=== PATIENT | female | born 1960 | race Caucasian/White ===

== ENCOUNTER 2016-09-12 01:29 | Observation (INO) | payer MEDICARE, OTHER ==
[2016-09-12] MEDS ORDERED: SODIUM CHLORIDE 0.9% 500 ML IV STA (02:09)
[2016-09-12] MEDS ORDERED: KETOROLAC 60 MG/2 ML VIAL IVP STA (02:17)
--- NOTE | 2016-09-12 02:17 | ED ---
General Adult HPI - General Chief complaint: Abdominal Pain Stated complaint: right side pain Time Seen by Provider: 09/12/16 01:45 Source: patient, RN notes reviewed Mode of arrival: ambulatory Limitations: no limitations - History of Present Illness Initial comments: This is a 55-year-old female who presents to the emergency department with past medical history of depression and fibromyalgia and chronic fatigue syndrome and arthritis since she's been a child. Patient states she is on disability because of these things. Patient states she has right upper quadrant abdominal pain that radiates to her back which she states is been ongoing for many months and it is intermittent in nature. 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 Patient states she had some trapezius muscle pain on with some right arm pain occurred when she was having some of her typical chest pain so she decided comes emergency Department and be worked up. Patient states currently she has no chest pain she denies any difficulty breathing or shortness of breath. Patient denies any nausea vomiting or diarrhea. Patient states she's been able to eat normally. Patient denies any recent fever chills or cough. Patient denies any recent injury or trauma. Patient denies lifting anything heavy. Patient states her trapezius muscle is tender when you touch it. - Related Data Home Medications Medication Instructions Recorded Confirmed Aspirin EC [Ecotrin] 81 mg PO DAILY 12/02/15 09/12/16 Carvedilol [Coreg] 6.25 mg PO BID 12/02/15 09/12/16 Chlorthalidone 25 mg PO DAILY 12/02/15 09/12/16 Cholecalciferol [Vitamin D3] 2,000 unit PO DAILY 12/02/15 09/12/16 Cyanocobalamin [Vitamin B-12 1,000 mcg SQ QMONTH 12/02/15 09/12/16 Injection] Divalproex Sodium [Divalproex 500 mg PO DAILY 12/02/15 09/12/16 Sodium ER] HYDROcodone/APAP 10-325MG [[place] 1 tab PO Q4HR 12/02/15 09/12/16 10-325] Isosorbide Mononitrate ER [Imdur] 30 mg PO DAILY 12/02/15 09/12/16 Lisinopril [Zestril] 2.5 mg PO DAILY 12/02/15 09/12/16 Magnesium Oxide [Mag-Ox] 250 mg PO DAILY 12/02/15 09/12/16 Naproxen [Naprosyn] 500 mg PO Q12HR 12/02/15 09/12/16 Omeprazole [PriLOSEC] 40 mg PO DAILY 12/02/15 09/12/16 Pregabalin [Lyrica] 150 mg PO TID 12/02/15 09/12/16 Simvastatin [Zocor] 40 mg PO HS 12/02/15 09/12/16 Topiramate [Topamax] 25 mg PO QID 12/02/15 09/12/16 Venlafaxine HCl ER [Effexor Xr] 150 mg PO DAILY 12/02/15 09/12/16 buPROPion SR [Wellbutrin Sr] 150 mg PO BID 12/02/15 09/12/16 metFORMIN HCL [Glucophage] 500 mg PO BID 12/02/15 09/12/16 traMADol HCL [Ultram] 100 mg PO Q6HR 12/02/15 09/12/16 traZODone HCL 150 mg PO HS 12/02/15 09/12/16 Allergies Allergy/AdvReac Type Severity Reaction Status Date / Time No Known Allergies Allergy Verified 09/12/16 01:46 Review of Systems ROS Statement: Those systems with pertinent positive or pertinent negative responses have been documented in the HPI. ROS Other: All systems not noted in ROS Statement are negative. Past Medical History Past Medical History: Diabetes Mellitus, Fibromyalgia, Hyperlipidemia, Hypertension, Seizure Disorder History of Any Multi-Drug Resistant Organisms: None Reported Past Surgical History: Bladder Surgery, Tubal Ligation Past Psychological History: Depression Smoking Status: Current every day smoker Past Alcohol Use History: None Reported Past Drug Use History: None Reported General Exam - General Exam Comments Initial Comments: GENERAL: Patient is well-developed and well-nourished. Patient is nontoxic and well- hydrated and is in no acute distress. ENT: Neck is soft and supple. No significant lymphadenopathy is noted. Oropharynx is clear. Moist mucous membranes. Neck has full range of motion without eliciting any pain. EYES: The sclera were anicteric and conjunctiva were pink and moist. Extraocular movements were intact and pupils were equal round and reactive to light. Eyelids were unremarkable. PULMONARY: Unlabored respirations. Good breath sounds bilaterally. No audible rales rhonchi or wheezing was noted. CARDIOVASCULAR: There is a regular rate and rhythm without any murmurs gallops or rubs. ABDOMEN: Soft and nontender with normal bowel sounds. No palpable organomegaly was noted. There is no palpable pulsatile mass. SKIN: Skin is clear with no lesions or rashes and otherwise unremarkable. NEUROLOGIC: Patient is alert and oriented x3. Cranial nerves II through XII are grossly intact. Motor and sensory are also intact. Normal speech, volume and content. Symmetrical smile. MUSCULOSKELETAL: Normal extremities with adequate strength and full range of motion. No lower extremity swelling or edema. No calf tenderness. Left patient's muscle is tender to palpation. LYMPHATICS: No significant lymphadenopathy is noted PSYCHIATRIC: Normal psychiatric evaluation. Normal interpersonal interactions appears functionally intact in deals appropriately with others. No signs of depression. No signs of anxiety. Limitations: no limitations Course Vital Signs 09/12/16 01:44 Temperature 98.3 F Pulse Rate 89 Respiratory 20 Rate Blood Pressure 141/86 O2 Sat by Pulse 98 Oximetry Medical Decision Making - Medical Decision Making EKG is repeated because the patient started having chest pain radiating to her neck. Patient's EKG shows normal sinus rhythm at 86 bpm HI interval is 160 QRS is 84 Q-T intervals 46 QTC is 45 per patient's EKG is compared to the earlier EKG no acute changes are noted. I spoke with Dr. Iniguez and he agreed to admit the patient and wrote admitting orders consult to cardiology - Lab Data Result diagrams: 09/12/16 02:30 09/12/16 02:30 Lab Results 09/12/16 09/12/16 09/12/16 Range/Units 02:30 02:30 02:30 WBC 7.5 (3.8-10.6) k/uL RBC 4.86 (3.80-5.40) m/uL Hgb 14.0 (11.4-16.0) gm/dL Hct 42.3 (34.0-46.0) % MCV 87.0 (80.0-100.0) fL MCH 28.8 (25.0-35.0) pg MCHC 33.1 (31.0-37.0) g/dL RDW 14.3 (11.5-15.5) % Plt Count 153 (150-450) k/uL Neutrophils % 58 % Lymphocytes % 33 % Monocytes % 6 % Eosinophils % 1 % Basophils % 1 % Neutrophils # 4.4 (1.3-7.7) k/uL Lymphocytes # 2.5 (1.0-4.8) k/uL Monocytes # 0.4 (0-1.0) k/uL Eosinophils # 0.1 (0-0.7) k/uL Basophils # 0.0 (0-0.2) k/uL Sodium 140 (137-145) mmol/L Potassium 3.8 (3.5-5.1) mmol/L Chloride 104 (98-107) mmol/L Carbon Dioxide 28 (22-30) mmol/L Anion Gap 8 mmol/L BUN 16 (7-17) mg/dL Creatinine 0.80 (0.52-1.04) mg/dL Est GFR (MDRD) Af Amer >60 (>60 ml/min/1.73 sqM) Est GFR (MDRD) Non-Af >60 (>60 ml/min/1.73 sqM) Glucose 100 H (74-99) mg/dL Calcium 9.6 (8.4-10.2) mg/dL Total Bilirubin 0.4 (0.2-1.3) mg/dL AST 15 (14-36) U/L ALT 24 (9-52) U/L Alkaline Phosphatase 72 (38-126) U/L Total Creatine Kinase 52 (30-135) U/L CK-MB (CK-2) 0.4 (0.0-2.4) ng/mL CK-MB (CK-2) Rel Index 0.8 Troponin I <0.012 (0.000-0.034) ng/mL Total Protein 6.2 L (6.3-8.2) g/dL Albumin 3.8 (3.5-5.0) g/dL Amylase 36 (30-110) U/L Lipase 182 (23-300) U/L Urine Color Urine Appearance (Clear) Urine pH (5.0-8.0) Ur Specific [place] (1.001-1.035) Urine Protein (Negative) Urine Glucose (UA) (Negative) Urine Ketones (Negative) Urine Blood (Negative) Urine Nitrite (Negative) Urine Bilirubin (Negative) Urine Urobilinogen (<2.0) mg/dL Ur Leukocyte Esterase (Negative) 04/22/17 Range/Units 03:50 WBC (3.8-10.6) k/uL RBC (3.80-5.40) m/uL Hgb (11.4-16.0) gm/dL Hct (34.0-46.0) % MCV (80.0-100.0) fL MCH (25.0-35.0) pg MCHC (31.0-37.0) g/dL RDW (11.5-15.5) % Plt Count (150-450) k/uL Neutrophils % % Lymphocytes % % Monocytes % % Eosinophils % % Basophils % % Neutrophils # (1.3-7.7) k/uL Lymphocytes # (1.0-4.8) k/uL Monocytes # (0-1.0) k/uL Eosinophils # (0-0.7) k/uL Basophils # (0-0.2) k/uL Sodium (137-145) mmol/L Potassium (3.5-5.1) mmol/L Chloride (98-107) mmol/L Carbon Dioxide (22-30) mmol/L Anion Gap mmol/L BUN (7-17) mg/dL Creatinine (0.52-1.04) mg/dL Est GFR (MDRD) Af Amer (>60 ml/min/1.73 sqM) Est GFR (MDRD) Non-Af (>60 ml/min/1.73 sqM) Glucose (74-99) mg/dL Calcium (8.4-10.2) mg/dL Total Bilirubin (0.2-1.3) mg/dL AST (14-36) U/L ALT (9-52) U/L Alkaline Phosphatase (38-126) U/L Total Creatine Kinase (30-135) U/L CK-MB (CK-2) (0.0-2.4) ng/mL CK-MB (CK-2) Rel Index Troponin I (0.000-0.034) ng/mL Total Protein (6.3-8.2) g/dL Albumin (3.5-5.0) g/dL Amylase (30-110) U/L Lipase (23-300) U/L Urine Color Yellow Urine Appearance Clear (Clear) Urine pH 6.5 (5.0-8.0) Ur Specific [place] 1.017 (1.001-1.035) Urine Protein Negative (Negative) Urine Glucose (UA) Negative (Negative) Urine Ketones Negative (Negative) Urine Blood Negative (Negative) Urine Nitrite Negative (Negative) Urine Bilirubin Negative (Negative) Urine Urobilinogen 2.0 (<2.0) mg/dL Ur Leukocyte Esterase Negative (Negative) Disposition Clinical Impression: Chest pain Disposition: [facility] Time of Disposition: 04:22
[2016-09-12 02:57] LABS: Basophils % (A) 1 %; CH 28.7; CHCM 33.1; Eosinophils # (A) 0.1 k/uL (0-0.7); Eosinophils % (A) 1 %; HCT 42.3 % (34.0-46.0); HDW 2.67; Luc # (Auto) 0.19; Luc % (Auto) 3; Lymphocytes # (A) 2.5 k/uL (1.0-4.8); Lymphocytes % (A) 33 %; MCH 28.8 pg (25.0-35.0); MCHC 33.1 g/dL (31.0-37.0); Mean Platelet Volume 8.4; Monocytes # (A) 0.4 k/uL (0-1.0); Monocytes % (A) 6 %; Neutrophils # (A) 4.4 k/uL (1.3-7.7); Neutrophils % (A) 58 %; RBC 4.86 m/uL (3.80-5.40); RDW 14.3 % (11.5-15.5); WBC 7.5 k/uL (3.8-10.6); WBC (Perox) 7.65
[2016-09-12 03:15] LABS: ALT 24 U/L (9-52); AST 15 U/L (14-36); Alkaline Phosphatase 72 U/L (38-126); Amylase 36 U/L (30-110); Anion Gap 8 mmol/L; Blood Urea Nitrogen 16 mg/dL (7-17); Calcium 9.6 mg/dL (8.4-10.2); Carbon Dioxide 28 mmol/L (22-30); Chloride 104 mmol/L (98-107); Glucose 100 mg/dL (74-99); Non-African American GFR(MDRD) >60 (>60 ml/min/1.73 sqM); Potassium 3.8 mmol/L (3.5-5.1); Sodium 140 mmol/L (137-145); Total Bilirubin 0.4 mg/dL (0.2-1.3); Total Protein 6.2 g/dL (6.3-8.2)
[2016-09-12 03:18] LABS: Creatine Kinase 52 U/L (30-135)
[2016-09-12 03:29] LABS: Creatine Kinase MB 0.4 ng/mL (0.0-2.4); Troponin I <0.012 ng/mL (0.000-0.034)
--- NOTE | 2016-09-12 03:33 | XR ---
EXAM: XR Chest, 2 Views. CLINICAL HISTORY: Reason: abdominal pain TECHNIQUE: Frontal and lateral views of the chest. COMPARISON: Chest x-ray dated 12/02/2015 FINDINGS: Lungs: Platelike atelectasis within the lower lungs. No parenchymal abnormality to suggest an inflammatory or infectious processes. Pleural space: Unremarkable. No pneumothorax. Heart: Unremarkable. No cardiomegaly. Mediastinum: Unremarkable. Bones/joints: Degenerative changes of the osseous structures. Upper abdomen: No free air under the hemidiaphragms. IMPRESSION: No acute findings.
[2016-09-12 04:03] LABS: Appearance,Urine Clear (Clear); Bilirubin,Urine Negative (Negative); Glucose,Urine (UA) Negative (Negative); Ketones,Urine Negative (Negative); Leukocyte Esterase,Urine Negative (Negative); Nitrite,Urine Negative (Negative); PH, Urine 6.5 (5.0-8.0); Protein,Urine Negative (Negative); Specific Gravity,Urine 1.017 (1.001-1.035); UA Billing (MACRO vs. MICRO) CHEM
[2016-09-12] MEDS ORDERED: NITROGLYCERIN SL TABS 0.4 MG TAB SUBLINGUAL PRN ×2 (04:22→16:02)
[2016-09-12 04:35] VITALS: RESP 18
[2016-09-12 05:40] VITALS: BMI 41.0
[2016-09-12] MEDS: NITROGLYCERIN OINT 1 INCH/GM PACKET TOPICAL SCH ×4 (06:39→23:29)
[2016-09-12 07:05] LABS: Glucose,Whole Blood 99 mg/dL (75-99)
[2016-09-12 09:03] LABS: Creatine Kinase 53 U/L (30-135)
[2016-09-12 09:15] LABS: Creatine Kinase MB 0.5 ng/mL (0.0-2.4); Troponin I <0.012 ng/mL (0.000-0.034)
--- NOTE | 2016-09-12 09:18 | P.CRDCN ---
History of Present Illness Consult date: 09/12/16 History of present illness: This is a 55-year-old female with history of depression and fibromyalgia and chronic fatigue syndrome is admitted to the hospital with complaints of chest pains. Patient is vague in her description of the pain. She claimed that she has been having some chest pain for some time and she is scheduled to have a stress test by Dr. Ocampo at the [facility] next week. Yesterday patient was feeling pain on the left side and not feeling well. She claims that her sharp pains. An EKG did not reveal any acute changes. One set of cardiac enzyme is negative. If cardiac enzymes remained stable and patient is pain-free, patient could be discharged home. Patient will have the outpatient stress test that scheduled and have follow-up with her own conference services director Past Medical History Past Medical History: Asthma, COPD, Diabetes Mellitus, Eye Disorder, Fibromyalgia, GERD/Reflux, Hyperlipidemia, Hypertension, Osteoarthritis (OA), Pneumonia, Seizure Disorder, Syncope Additional Past Medical History / Comment(s): RLS History of Any Multi-Drug Resistant Organisms: None Reported Past Surgical History: Bladder Surgery, Tubal Ligation Additional Past Surgical History / Comment(s): Bx throat, colonoscopy Past Anesthesia/Blood Transfusion Reactions: No Reported Reaction Additional Past Anesthesia/Blood Transfusion Reaction / Comment(s): Difficulty coming out of it Past Psychological History: Depression Smoking Status: Current every day smoker Past Alcohol Use History: None Reported Past Drug Use History: None Reported - Past Family History Father Family Medical History: Liver Disease, Myocardial Infarction (VT) Additional Family Medical History / Comment(s): from liver failure Mother Family Medical History: Myocardial Infarction (VT) Medications and Allergies Home Medications Medication Instructions Recorded Confirmed Type Aspirin EC [Ecotrin] 81 mg PO DAILY 12/02/15 09/12/16 History Carvedilol [Coreg] 6.25 mg PO BID 12/02/15 09/12/16 History Chlorthalidone 25 mg PO DAILY 12/02/15 09/12/16 History Cholecalciferol [Vitamin D3] 2,000 unit PO DAILY 12/02/15 09/12/16 History Divalproex Sodium [Divalproex 500 mg PO DAILY 12/02/15 09/12/16 History Sodium ER] HYDROcodone/APAP 10-325MG [[place] 1 tab PO Q4HR 12/02/15 09/12/16 History 10-325] Isosorbide Mononitrate ER [Imdur] 30 mg PO DAILY 12/02/15 09/12/16 History Lisinopril [Zestril] 2.5 mg PO DAILY 12/02/15 09/12/16 History Magnesium Oxide [Mag-Ox] 250 mg PO DAILY 12/02/15 09/12/16 History Naproxen [Naprosyn] 500 mg PO Q12HR 12/02/15 09/12/16 History Omeprazole [PriLOSEC] 40 mg PO DAILY 12/02/15 09/12/16 History Pregabalin [Lyrica] 150 mg PO TID 12/02/15 09/12/16 History Simvastatin [Zocor] 40 mg PO HS 12/02/15 09/12/16 History Venlafaxine HCl ER [Effexor Xr] 150 mg PO DAILY 12/02/15 09/12/16 History buPROPion SR [Wellbutrin Sr] 150 mg PO BID 12/02/15 09/12/16 History metFORMIN HCL [Glucophage] 500 mg PO BID 12/02/15 09/12/16 History traZODone HCL 150 mg PO HS 12/02/15 09/12/16 History Nitroglycerin [Nitroglycerin] 0.4 mg SUBLINGUAL DIRECTED PRN 09/12/16 History Allergies Allergy/AdvReac Type Severity Reaction Status Date / Time No Known Allergies Allergy Verified 09/12/16 05:54 Physical Exam Vitals: Vital Signs Temp Pulse Pulse Resp BP BP Pulse Ox 09/12/16 08:00 98.1 F 66 18 129/74 93 L 09/12/16 05:33 18 09/12/16 05:32 97.5 F L 77 18 127/85 92 L 09/12/16 05:13 97.8 F 82 18 150/96 96 09/12/16 04:32 77 18 143/96 98 Intake and Output 09/11/16 09/12/16 09/12/16 22:59 06:59 14:59 Other: # Voids 1 Weight 98.43 kg GENERAL EXAM: Patient is alert and oriented and doesn't appear to be in any acute distress. Patient is obese rebuilt HEENT: Normocephalic. Normal reaction of pupils, equal size, normal range of extraocular motion. No erythema or exudates in the throat. NECK: No masses, no nuchal rigidity. CHEST: No chest wall deformity. LUNGS: Equal air entry with no crackles or wheeze. HEART: S1 and S2 normal with no audible mumurs or gallops. Regular rhythm, . ABDOMEN: No hepatosplenomegaly, normal bowel sounds, no guarding or rigidity. SKIN: No rashes CENTRAL NERVOUS SYSTEM: No focal deficits. EXTREMITIES: No cyanosis, clubbing or edema. Results 09/12/16 02:30 09/12/16 02:30 Current Medications Generic Name Dose Route Start Last Admin Trade Name Freq PRN Reason Stop Dose Admin Aspirin 325 mg 09/13/16 09:00 Aspirin PO DAILY SUDHA Nitroglycerin 1 inch 09/12/16 06:00 09/12/16 06:39 Nitro-Bid Oint TOPICAL Not Given Q6HR SUDHA Nitroglycerin 0.4 mg 09/12/16 04:22 Nitrostat SUBLINGUAL Q5M PRN Chest Pain Intake and Output 09/11/16 09/12/16 09/12/16 22:59 06:59 14:59 Other: # Voids 1 Weight 98.43 kg EKG Interpretations (text) Sinus rhythm Assessment and Plan (1) Fibromyalgia Status: Acute (2) Chest pain Status: Acute (3) Chronic depression Status: Acute (4) Arthritis Status: Acute (5) Hypertension Status: Acute (6) Diabetes mellitus Status: Acute Plan: Patient's chest pains appear to be atypical. Cardiac enzymes are so far negative. EKGs did not reveal any acute changes. Patient is comfortable this morning. If enzymes remain negative, patient could be discharged home. She will keep her appointment for stress test and follow up with Dr. Ocampo.
[2016-09-12 12:18] LABS: Glucose,Whole Blood 147 mg/dL (75-99)
[2016-09-12 15:25] LABS: Creatine Kinase 69 U/L (30-135)
[2016-09-12 15:37] LABS: Creatine Kinase MB 0.5 ng/mL (0.0-2.4); Troponin I <0.012 ng/mL (0.000-0.034)
[2016-09-12] MEDS ORDERED: methylPREDNISolone SOD SUCCI 125 MG/2 ML VIAL IV STA (16:05)
[2016-09-12 17:15] LABS: Glucose,Whole Blood 117 mg/dL (75-99)
[2016-09-12] MEDS: VENLAFAXINE HCL ER 150 MG CAP PO SCH (17:15)
[2016-09-12] MEDS: PREGABALIN 75 MG CAP PO SCH ×2 (17:15→20:19)
[2016-09-12] MEDS: LISINOPRIL 2.5 MG TAB PO SCH (17:15)
[2016-09-12] MEDS: CARVEDILOL 6.25 MG TAB PO SCH (17:15)
[2016-09-12] MEDS: PANTOPRAZOLE 40 MG TABLET PO SCH (17:15)
[2016-09-12] MEDS: IPRATROPIUM-ALBUTEROL 3 ML NEB INHALATION PRN (19:46)
[2016-09-12] MEDS ORDERED: traZODone HCL 100 MG TAB PO SCH (21:00)
[2016-09-12] MEDS ORDERED: DIVALPROEX ER 500 MG TAB.ER.24H PO SCH (21:00)
[2016-09-12] MEDS ORDERED: ATORVASTATIN 20 MG TAB PO SCH (21:00)
[2016-09-12 21:05] LABS: Glucose,Whole Blood 235 mg/dL (75-99)
--- NOTE | 2016-09-12 22:11 | HP ---
DATE OF ADMISSION: 09/12/2016 CHIEF COMPLAINT: Chest pain. HISTORY OF PRESENT ILLNESS: Ms. Porter is a 55 -year-old female with known history of COPD on home oxygen, hypertension, diabetes mellitus, type II, [id number] and fibromyalgia and other medical problems, came to the hospital with complaints of midsternal chest pain and ( ) in the right side and also back pain and lower back pain which is getting worse with cough. Apparently patient has been having progressive worsening short of breath and cough and wheezing as well as worsening short of breath and chest pain recently and patient was scheduled for a stress test by Dr. Ocampo at [facility] next week. Patient was feeling left-sided chest pain as well and not feeling well and feeling sharp pains. No associated nausea or vomiting. Patient does have hot flashes. No diaphoresis. No headache or dizziness, lightheadedness along with the pain. Patient has been having cough, which is mainly dry and wheezing. The patient admitted to the hospital for chest pain and apparently cardiac work-up has been negative so far. Denied any recent illnesses. Patient complaining of congestion in the nose and cough and subjective fevers and chills at home. Otherwise, the patient denied any complaints. REVIEW OF SYSTEMS: CONSTITUTIONAL: Subjective fever and chills. No weakness. RESPIRATORY: Patient does have cough but no sputum production and short of breath. CARDIOVASCULAR: The patient does have chest pain and no palpitations. No leg swelling. ABDOMEN: No nausea or vomiting, abdominal pain. GENITOURINARY: Negative. ENDOCRINE: negative. SKIN: Negative. All other fourteen-point review of systems negative except as above. Past medical history includes COPD on home oxygen. Diabetes type 2, [id number], seizure disorder, history of syncope, GERD and fibromyalgia, hyperlipidemia, hypertension, osteoarthritis. Past surgical history: Bladder surgery, tubal ligation, biopsy of throat and colonoscopy. PSYCHOSOCIAL HISTORY: Depression. SOCIAL HISTORY: Currently every day smoker; smokes about 1 pack per day. Denied any alcohol use. Denied any drugs or IVDU. FAMILY HISTORY: Father had liver disease and myocardial infarction, from liver failure. Mother had myocardial infarction. Home medications include: 1. Aspirin. 2. Coreg. 3. Chlorthalidone. 4. Vitamin D3. 5. Depakote. 6. [place] 10/325. 7. Imdur. 8. Zestril. 9. Magnesium oxide. 10. Naprosyn. 11. Prilosec. 12. Lyrica. 13. Zocor. 14. Effexor. 15. Wellbutrin. 16. Metformin. 17. Trazodone. 18. Nitroglycerin sublingual. ALLERGIES: No known drug allergies. PHYSICAL EXAMINATION: A 55 -year-old female, lying in bed comfortably, awake, alert, oriented, x3. The patient is morbidly obese. VITALS: Blood pressure is 145/73, pulse is 77, respirations 18, temperature afebrile, pulse ox 92% on 2 liters nasal cannula. HEENT: Atraumatic, normocephalic. Neck is supple. No JVD. CVS: S1, S2 heard. No murmurs, no gallop. LUNGS: Bilateral diminished air entry. Expiratory wheezing positive diffusely. Nonlabored breathing. ABDOMEN: Soft, nontender, bowel sounds present. CENTRAL NERVOUS SYSTEM: Awake, alert and oriented x3. No focal deficit. EXTREMITIES: No edema. Pulses palpable bilaterally. No clubbing or cyanosis. PSYCHIATRIC: Cooperative. LABORATORY DATA: WBC 7.5, hemoglobin 14.0, platelets 153, sodium 140, potassium 3.8, chloride 104, bicarb is 28. BUN 16, creatinine 0.8. AST is 15, ALT is 24, alkaline phosphatase 72, lipase is 182. UA negative. EKG normal sinus rhythm. CHEST X-RAY: No acute findings. IMPRESSION: 1. Shortness of breath, likely due to acute chronic obstructive pulmonary disease exacerbation with significant wheezing. 2. Chest pain and back pain most likely significant cough. 3. History of fibromyalgia. 4. Chronic depression. 5. Degenerative joint disease. 6. Hypertension. 7. Diabetes type 2, [id number]-byhaqssiu. 8. Morbid obesity, body mass index 41. 9. History of seizure disorder. 10. Hyperlipidemia. 11. Gastroesophageal reflux disease. 12. Deep venous thrombosis prophylaxis with heparin subcu. 13. Nicotine addiction. DISCUSSION AND PLAN: The patient will be continued on breathing treatments and started on steroids. The patient is on prednisone 40 mg daily. We will give IV dose now one time and will continue the current management. Serial EKGs and troponins negative. Cardiology recommended no further work-up. Patient has been recommended to follow stress test next week. Otherwise continue the current management and further recommendations based on clinical course. Patient was counseled for smoking cessation.
[2016-09-13 03:38] LABS: Cholesterol 179 mg/dL (<200); HDL Cholesterol 46 mg/dL (40-60); Triglycerides 198 mg/dL (<150)
[2016-09-13] MEDS: NITROGLYCERIN OINT 1 INCH/GM PACKET TOPICAL SCH ×2 (03:59→11:42)
[2016-09-13 07:16] LABS: Glucose,Whole Blood 140 mg/dL (75-99)
[2016-09-13] MEDS: CARVEDILOL 6.25 MG TAB PO SCH (07:54)
[2016-09-13] MEDS: LISINOPRIL 2.5 MG TAB PO SCH (08:00)
[2016-09-13] MEDS: VENLAFAXINE HCL ER 150 MG CAP PO SCH (08:00)
[2016-09-13] MEDS: PANTOPRAZOLE 40 MG TABLET PO SCH (08:00)
[2016-09-13] MEDS: PREGABALIN 75 MG CAP PO SCH (08:01)
[2016-09-13] MEDS: IPRATROPIUM-ALBUTEROL 3 ML NEB INHALATION PRN ×2 (08:18→13:40)
[2016-09-13] MEDS ORDERED: predniSONE 20 MG TAB PO SCH (09:00)
[2016-09-13] MEDS ORDERED: ASPIRIN 325 MG TAB PO SCH (09:00)
[2016-09-13] MEDS ORDERED: CHLORTHALIDONE 25 MG TAB PO SCH (09:00)
[2016-09-13] MEDS ORDERED: NON-FORMULARY DRUG (Aspirin Ec 81 MG) PO SCH (09:00)
[2016-09-13] MEDS ORDERED: ACETAMINOPHEN TAB 500 MG TAB PO PRN (09:15)
[2016-09-13 11:43] VITALS: BP 153/97; TEMP 97.7
[2016-09-13 12:16] LABS: Glucose,Whole Blood 138 mg/dL (75-99)
[2016-09-13 13:51] VITALS: PULSE 104
--- NOTE | 2016-09-15 07:59 | DS ---
DATE OF ADMISSION: 09/12/2016 DATE OF DISCHARGE: 09/13/2016 DISCHARGE DIAGNOSIS(ES): 1. Shortness of breath likely due to chronic obstructive pulmonary disease exacerbation improve at this time. 2. Chest pain and back pain likely due to significant cough, unlikely acute coronary syndrome, ruled ACS. 3. History of fibromyalgia. 4. Chronic depression. 5. Degenerative joint disease. 6. Hypertension. 7. Type 2 diabetes mellitus, [id number]. 8. Morbid obesity with a body mass index of 41. 9. Seizure disorder. 10. Hyperlipidemia. 11. Gastroesophageal reflux disease. 12. Nicotine addiction, counseled extensively. 13. Chronic hypoxic respiratory failure on home oxygen at home ( ) chronic obstructive pulmonary disease. HOSPITAL COURSE: Ms. Porter is an 55-year-old female with known history of multiple medical problems including nicotine addiction as discussed above, admitted to the hospital with complaints of mid sternal chest pain radiating to the right side and back which is getting worse with cough. Patient was also found to have significant wheezing and was started on IV steroids, treated for acute COPD exacerbation and patient was seen by cardiology and ruled out acute coronary syndrome, serial EKGs and troponins were negative. With steroids and breathing treatments, breathing status much improved now. Wheezing has improved. Patient will be continued on steroids for the next five days and follow with primary care physician. Patient was counseled extensively for nicotine addiction and ST elevation. Otherwise, the patient is stable to be discharged home. Discussed with the patient and family regarding ( ) today. DISCHARGE PHYSICAL EXAMINATION: A 55 -year-old female lying in bed comfortably, awake, alert, appears to be in no apparent distress. VITALS: Blood pressure is 153/97, pulse is 85, respirations 18, temperature afebrile. Pulse ox 93% on 2 L nasal cannula. The patient is on home oxygen. HEENT: Atraumatic, normocephalic. Neck supple, no jugular venous distention. CARDIOVASCULAR: S1, S2 heard. No murmurs, no rubs, no gallop. LUNGS: Bilateral air entry is present. Prolonged expiration. No wheezing. Nonlabored breathing. ABDOMEN: Soft, nontender, bowel sounds present. CENTRAL NERVOUS SYSTEM: Awake, alert and oriented times three. No focal deficits. EXTREMITIES: No clubbing or cyanosis. PSYCHIATRIC: Cooperative. LABORATORY DATA: Reviewed. Discharge physical examination done. Discharge medications include: 1. Aspirin 81 mg p.o. daily. 2. Coreg 6.25 mg p.o. b.i.d. 3. Chlorthalidone 25 mg p.o. daily. 4. Depakote 500 mg p.o. at bedtime. 5. [place] 10 1 tablets q.i.d. p.r.n. for pain. 6. Imdur 30 mg p.o. daily. 7. Zestril 2.5 mg p.o. daily. 8. Magnesium oxide 250 mg p.o. daily. 9. Naprosyn 500 mg p.o. q.12 hours. 10. Omeprazole 40 mg p.o. daily. 11. Pregabalin 150 mg p.o. t.i.d. 12. Simvastatin 40 mg p.o. at bedtime. 13. Zyprexa 150 mg p.o. daily. 14. Metformin 500 mg p.o. with supper. 15. Trazodone 10 mg p.o. at bedtime. 16. Albuterol inhaler two puffs inhalation q.6 hourly for shortness of breath. 17. Fluticasone nasal spray one spray each nostril b.i.d. 18. Nitroglycerin 0.4 mg sublingual q5 minutes p.r.n. for chest pain. 19. Spiriva one capsule inhalation daily. 20. Vitamin B complex 1 capsule p.o. daily. 21. Prednisone 40 mg daily for 3 more days. Activity as tolerated. Heart healthy diet. Smoking cessation counseled. Home with self-care. Follow with Dr. Leyla Pina in one to two days.
== END 2016-09-13 16:14 | disposition home or self-care (01) ==
LOC: EC 01:29 → 3OBS 04:22
PROVIDERS: ADMIT Hospitalist; ATTEND Hospitalist
DX: R07.9 Chest pain, unspecified (principal); M54.9 Dorsalgia, unspecified; E11.9 Type 2 diabetes mellitus without complications; E66.01 Morbid (severe) obesity due to excess calories; Z68.41 Body mass index [BMI] 40.0-44.9, adult; E78.5 Hyperlipidemia, unspecified; F32.9 Major depressive disorder, single episode, unspecified; F17.200 Nicotine dependence, unspecified, uncomplicated; G25.81 Restless legs syndrome; G40.909 Epilepsy, unspecified, not intractable, without status epilepticus; I10 Essential (primary) hypertension; J44.1 Chronic obstructive pulmonary disease with (acute) exacerbation; J45.909 Unspecified asthma, uncomplicated; J96.11 Chronic respiratory failure with hypoxia; K21.9 Gastro-esophageal reflux disease without esophagitis; M19.90 Unspecified osteoarthritis, unspecified site; M79.7 Fibromyalgia; N95.1 Menopausal and female climacteric states; R53.82 Chronic fatigue, unspecified; Z79.899 Other long term (current) drug therapy; Z99.81 Dependence on supplemental oxygen; Z82.49 Family history of ischemic heart disease and other diseases of the circulatory system; Z79.84 Long term (current) use of oral hypoglycemic drugs
CPT/HCPCS: 99285 ×2; 96374 ×2; 36415; 94640 ×3; 94760; 93005; 80061; 80053; 84443; 82150; 82550; 82553; 83690; 84484; 85025; 81003; 71020; G0378 ×2; J2930; J1885; J7512; 96375

== ENCOUNTER 2016-09-24 18:19 | Emergency (ER) | payer MEDICARE, OTHER ==
[2016-09-24] MEDS ORDERED: SODIUM CHLORIDE 0.9% 1,000 ML IV STA (19:44)
[2016-09-24] MEDS ORDERED: METOCLOPRAMIDE 5 MG/ML 2 ML VIAL IVP STA (19:44)
[2016-09-24] MEDS ORDERED: FAMOTIDINE 20 MG/2 ML VIAL IV STA (19:44)
[2016-09-24] MEDS ORDERED: LORazepam 2 MG/ML SYRINGE IV STA (19:44)
--- NOTE | 2016-09-24 19:47 | ED ---
General Adult HPI - General Chief complaint: Nausea/Vomiting/Diarrhea Stated complaint: VOMITING, NAUSEA Time Seen by Provider: 09/24/16 19:00 Source: patient, RN notes reviewed Mode of arrival: ambulatory Limitations: no limitations - History of Present Illness Initial comments: Patient is a pleasant 55-year-old female presenting to the emergency department with complaints of nausea vomiting. Patient has chronic pain. Patient has chronic headaches. These are unchanged. Patient does have vomiting between 1 and 7 times for the past 4 days. No vomiting since this morning. Patient states decreased appetite and feels fall earlier. Patient states she has had increased stress recently. - Related Data Home Medications Medication Instructions Recorded Confirmed Aspirin EC [Ecotrin Low Dose] 81 mg PO DAILY 12/02/15 09/24/16 Carvedilol [Coreg] 6.25 mg PO BID 12/02/15 09/24/16 Chlorthalidone 25 mg PO DAILY 12/02/15 09/24/16 Divalproex Sodium [Divalproex 500 mg PO HS 12/02/15 09/24/16 Sodium ER] HYDROcodone/APAP 10-325MG [[place] 1 tab PO QID PRN 12/02/15 09/24/16 10-325] Isosorbide Mononitrate ER [Imdur] 30 mg PO DAILY 12/02/15 09/24/16 Lisinopril [Zestril] 2.5 mg PO DAILY 12/02/15 09/24/16 Magnesium Oxide [Mag-Ox] 250 mg PO DAILY 12/02/15 09/24/16 Naproxen [Naprosyn] 500 mg PO Q12HR 12/02/15 09/24/16 Omeprazole [PriLOSEC] 40 mg PO DAILY 12/02/15 09/24/16 Pregabalin [Lyrica] 150 mg PO TID 12/02/15 09/24/16 Simvastatin [Zocor] 40 mg PO HS 12/02/15 09/24/16 Venlafaxine HCl ER [Effexor XR] 150 mg PO DAILY 12/02/15 09/24/16 metFORMIN HCL [Glucophage] 500 mg PO W/SUPPER 12/02/15 09/24/16 traZODone HCL 300 mg PO HS 12/02/15 09/24/16 Albuterol Inhaler [Ventolin Hfa 2 puff INHALATION RT-Q6H PRN 09/12/16 09/24/16 Inhaler] Fluticasone Nasal [place] [Flonase 1 spray EA NOSTRIL BID PRN 09/12/16 09/24/16 Nasal [place]] Nitroglycerin 0.4 mg SUBLINGUAL Q5M PRN 09/12/16 09/24/16 Tiotropium 18 Mcg/Puff [Spiriva] 1 cap INHALATION RT-DAILY 09/12/16 09/24/16 Vitamin B Complex 1 cap PO DAILY 09/12/16 09/24/16 Previous Rx's Medication Instructions Recorded Ondansetron Odt [Zofran Odt] 4 mg PO Q8HR PRN #10 tab 09/24/16 Allergies Allergy/AdvReac Type Severity Reaction Status Date / Time No Known Allergies Allergy Verified 09/24/16 19:18 Review of Systems ROS Statement: Those systems with pertinent positive or pertinent negative responses have been documented in the HPI. ROS Other: All systems not noted in ROS Statement are negative. Constitutional: Denies: fever Eyes: Denies: eye pain ENT: Denies: ear pain Respiratory: Denies: cough Cardiovascular: Denies: chest pain Endocrine: Reports: fatigue Gastrointestinal: Denies: abdominal pain Genitourinary: Denies: dysuria Musculoskeletal: Reports: back pain (Chronic) Skin: Denies: rash Neurological: Reports: headache (Chronic) Past Medical History Past Medical History: Asthma, COPD, Diabetes Mellitus, Eye Disorder, Fibromyalgia, GERD/Reflux, Hyperlipidemia, Hypertension, Osteoarthritis (OA), Pneumonia, Seizure Disorder, Syncope Additional Past Medical History / Comment(s): RLS History of Any Multi-Drug Resistant Organisms: None Reported Past Surgical History: Bladder Surgery, Tubal Ligation Additional Past Surgical History / Comment(s): Bx throat, colonoscopy Past Anesthesia/Blood Transfusion Reactions: No Reported Reaction Additional Past Anesthesia/Blood Transfusion Reaction / Comment(s): Difficulty coming out of it Past Psychological History: Depression Smoking Status: Current every day smoker Past Alcohol Use History: None Reported Past Drug Use History: None Reported - Past Family History Father Family Medical History: Liver Disease, Myocardial Infarction ([place]) Additional Family Medical History / Comment(s): from liver failure Mother Family Medical History: Myocardial Infarction ([place]) General Exam Limitations: no limitations General appearance: alert, in no apparent distress Head exam: Present: atraumatic Eye exam: Present: normal appearance, PERRL ENT exam: Present: normal oropharynx Neck exam: Present: normal inspection Respiratory exam: Present: normal lung sounds bilaterally Cardiovascular Exam: Present: regular rate, normal rhythm GI/Abdominal exam: Present: soft. Absent: tenderness Extremities exam: Present: normal inspection Neurological exam: Present: alert, CN II-XII intact. Absent: motor sensory deficit Expanded Cranial nerves: EOM's Intact: Normal Motor strength exam: RUE: 5, LUE: 5, RLE: 5, LLE: 5 Psychiatric exam: Present: normal affect, normal mood Skin exam: Present: normal color Course Vital Signs 09/24/16 18:32 Temperature 98.4 F Pulse Rate 95 Respiratory 18 Rate Blood Pressure 136/95 O2 Sat by Pulse 97 Oximetry Medical Decision Making - Medical Decision Making Patient reexamined and resting comfortably in bed. Patient symptom free and comfortable with discharge home. Patient updated on results and need for follow -up. - Lab Data Result diagrams: 09/24/16 20:00 09/24/16 20:00 Lab Results 09/24/16 09/24/16 09/24/16 Range/Units 20:00 20:00 20:08 WBC 7.8 (3.8-10.6) k/uL RBC 4.82 (3.80-5.40) m/uL Hgb 14.1 (11.4-16.0) gm/dL Hct 40.7 (34.0-46.0) % MCV 84.3 (80.0-100.0) fL MCH 29.2 (25.0-35.0) pg MCHC 34.7 (31.0-37.0) g/dL RDW 13.9 (11.5-15.5) % Plt Count 172 (150-450) k/uL Neutrophils % 65 % Lymphocytes % 28 % Monocytes % 5 % Eosinophils % 1 % Basophils % 1 % Neutrophils # 5.1 (1.3-7.7) k/uL Lymphocytes # 2.2 (1.0-4.8) k/uL Monocytes # 0.4 (0-1.0) k/uL Eosinophils # 0.1 (0-0.7) k/uL Basophils # 0.0 (0-0.2) k/uL Sodium 140 (137-145) mmol/L Potassium 3.8 (3.5-5.1) mmol/L Chloride 103 (98-107) mmol/L Carbon Dioxide 27 (22-30) mmol/L Anion Gap 10 mmol/L BUN 17 (7-17) mg/dL Creatinine 0.82 (0.52-1.04) mg/dL Est GFR (MDRD) Af Amer >60 (>60 ml/min/1.73 sqM) Est GFR (MDRD) Non-Af >60 (>60 ml/min/1.73 sqM) Glucose 91 (74-99) mg/dL Calcium 9.2 (8.4-10.2) mg/dL Total Bilirubin 0.4 (0.2-1.3) mg/dL AST 16 (14-36) U/L ALT 27 (9-52) U/L Alkaline Phosphatase 66 (38-126) U/L Total Protein 6.5 (6.3-8.2) g/dL Albumin 3.8 (3.5-5.0) g/dL Amylase 44 (30-110) U/L Lipase 77 (23-300) U/L Urine Color Colorless Urine Appearance Clear (Clear) Urine pH 6.0 (5.0-8.0) Ur Specific [place] 1.005 (1.001-1.035) Urine Protein Negative (Negative) Urine Glucose (UA) Negative (Negative) Urine Ketones Negative (Negative) Urine Blood Negative (Negative) Urine Nitrite Negative (Negative) Urine Bilirubin Negative (Negative) Urine Urobilinogen <2.0 (<2.0) mg/dL Ur Leukocyte Esterase Negative (Negative) Disposition Clinical Impression: Nausea & vomiting Disposition: HOME SELF-CARE Condition: Stable Instructions: Acute Nausea and Vomiting (ED) Additional Instructions: Please follow-up with your doctor in the next couple of days for recheck. Return for uncontrolled vomiting, headache, weakness, fever or pain, worsening symptoms or other concerns. Prescriptions: Ondansetron Odt [Zofran Odt] 4 mg PO Q8HR PRN #10 tab PRN Reason: Nausea Referrals: Leyla Pina DO [Primary Care Provider] - 1-2 days
[2016-09-24 20:33] LABS: Appearance,Urine Clear (Clear); Bilirubin,Urine Negative (Negative); Glucose,Urine (UA) Negative (Negative); Ketones,Urine Negative (Negative); Leukocyte Esterase,Urine Negative (Negative); Nitrite,Urine Negative (Negative); Protein,Urine Negative (Negative); Specific Gravity,Urine 1.005 (1.001-1.035); UA Billing (MACRO vs. MICRO) CHEM; Urobilinogen,Urine <2.0 mg/dL (<2.0)
[2016-09-24 20:41] LABS: Basophils % (A) 1 %; CH 28.7; CHCM 34.2; Eosinophils # (A) 0.1 k/uL (0-0.7); Eosinophils % (A) 1 %; HCT 40.7 % (34.0-46.0); HDW 2.67; HGB 14.1 gm/dL (11.4-16.0); Luc # (Auto) 0.11; Luc % (Auto) 1; Lymphocytes # (A) 2.2 k/uL (1.0-4.8); Lymphocytes % (A) 28 %; MCH 29.2 pg (25.0-35.0); MCHC 34.7 g/dL (31.0-37.0); MCV 84.3 fL (80.0-100.0); Monocytes # (A) 0.4 k/uL (0-1.0); Monocytes % (A) 5 %; Neutrophils # (A) 5.1 k/uL (1.3-7.7); Neutrophils % (A) 65 %; RBC 4.82 m/uL (3.80-5.40); RDW 13.9 % (11.5-15.5); WBC 7.8 k/uL (3.8-10.6); WBC (Perox) 7.84
[2016-09-24 20:51] LABS: ALT 27 U/L (9-52); AST 16 U/L (14-36); Alkaline Phosphatase 66 U/L (38-126); Amylase 44 U/L (30-110); Anion Gap 10 mmol/L; Blood Urea Nitrogen 17 mg/dL (7-17); Calcium 9.2 mg/dL (8.4-10.2); Carbon Dioxide 27 mmol/L (22-30); Chloride 103 mmol/L (98-107); Glucose 91 mg/dL (74-99); Non-African American GFR(MDRD) >60 (>60 ml/min/1.73 sqM); Potassium 3.8 mmol/L (3.5-5.1); Sodium 140 mmol/L (137-145); Total Bilirubin 0.4 mg/dL (0.2-1.3); Total Protein 6.5 g/dL (6.3-8.2)
[2016-09-24 22:09] VITALS: BP 127/83; PULSE 66; RESP 16; TEMP 98.7
== END 2016-09-24 22:09 | disposition home or self-care (01) ==
LOC: EC 18:19
DX: R11.2 Nausea with vomiting, unspecified (principal); R51 Headache; R63.8 Other symptoms and signs concerning food and fluid intake; G89.29 Other chronic pain; E11.9 Type 2 diabetes mellitus without complications; I10 Essential (primary) hypertension; E78.5 Hyperlipidemia, unspecified; J44.9 Chronic obstructive pulmonary disease, unspecified; K21.9 Gastro-esophageal reflux disease without esophagitis; M19.90 Unspecified osteoarthritis, unspecified site; G40.909 Epilepsy, unspecified, not intractable, without status epilepticus; M79.7 Fibromyalgia; F32.9 Major depressive disorder, single episode, unspecified; F17.200 Nicotine dependence, unspecified, uncomplicated; Z79.82 Long term (current) use of aspirin; Z79.84 Long term (current) use of oral hypoglycemic drugs; Z79.1 Long term (current) use of non-steroidal anti-inflammatories (NSAID); Z79.899 Other long term (current) drug therapy
CPT/HCPCS: 36415; 80053; 82150; 83690; 85025; 81003; 99284; 96374; 96375 ×2; 96361; J2060; J2765

== ENCOUNTER 2017-09-21 20:43 | Emergency (ER) | payer MEDICARE, OTHER ==
--- NOTE | 2017-09-21 21:26 | ED ---
General Adult HPI - General Chief complaint: Extremity Problem,Nontraumatic Stated complaint: leg swelling & drainage Time Seen by Provider: 09/21/17 21:10 Source: patient Mode of arrival: ambulatory Limitations: no limitations - History of Present Illness Initial comments: Patient is a 56-year-old female with a history of hypertension, fibromyalgia, chronic fatigue syndrome who presents with a chief complaint of bilateral lower extremity swelling. The patient states that her. Size since yesterday. Patient also complains of some leakage of fluid from her anterior left lower extremity. Patient cannot identify any inciting incident. There are no aggravating or alleviating factors. Timing is constant. Patient does admit to some shortness of breath, worse with lying down. She does not have a previous history of congestive heart failure. Patient also states that she frequent passes out and is waking up by her cat's, there are no physical signs of trauma on the patient's body. - Related Data Home Medications Medication Instructions Recorded Confirmed Chlorthalidone 25 mg PO DAILY 12/02/15 09/21/17 Divalproex Sodium [Divalproex 1,000 mg PO DAILY 12/02/15 09/21/17 Sodium ER] HYDROcodone/APAP 10-325MG [[place] 1 tab PO QID PRN 12/02/15 09/21/17 10-325] Lisinopril [Zestril] 2.5 mg PO DAILY 12/02/15 09/21/17 Omeprazole [PriLOSEC] 40 mg PO DAILY 12/02/15 09/21/17 Pregabalin [Lyrica] 150 mg PO TID 12/02/15 09/21/17 Simvastatin [Zocor] 40 mg PO HS 12/02/15 09/21/17 metFORMIN HCL [Glucophage] 500 mg PO DAILY 12/02/15 09/21/17 traZODone HCL 150 mg PO HS 12/02/15 09/21/17 Tiotropium 18 Mcg/Puff [Spiriva] 1 cap INHALATION RT-HS 09/12/16 09/21/17 DULoxetine HCL [Cymbalta] 60 mg PO BID 04/23/17 09/21/17 Solifenacin Succinate [Vesicare] 5 mg PO DAILY 04/23/17 09/21/17 busPIRone HCL 15 mg PO BID 04/23/17 09/21/17 Cholecalciferol (Vitamin D3) 2,000 unit PO DAILY 09/21/17 09/21/17 [Vitamin D3] Fluticasone/Vilanterol [[place] 1 puff INHALATION RT-HS 09/21/17 09/21/17 Ellipta 200-25 Mcg INH] Naproxen [EC-Naprosyn] 500 mg PO BID 09/21/17 09/21/17 Previous Rx's Medication Instructions Recorded Aspirin EC [Ecotrin Low Dose] 81 mg PO DAILY #30 tablet. 04/26/17 Allergies Allergy/AdvReac Type Severity Reaction Status Date / Time No Known Allergies Allergy Verified 09/21/17 22:04 Review of Systems ROS Statement: Those systems with pertinent positive or pertinent negative responses have been documented in the HPI. ROS Other: All systems not noted in ROS Statement are negative. Cardiovascular: Reports: edema Past Medical History Past Medical History: Asthma, COPD, Diabetes Mellitus, Eye Disorder, Fibromyalgia, GERD/Reflux, Hyperlipidemia, Hypertension, Osteoarthritis (OA), Pneumonia, Seizure Disorder, Syncope Additional Past Medical History / Comment(s): RLS History of Any Multi-Drug Resistant Organisms: None Reported Past Surgical History: Bladder Surgery, Tubal Ligation Additional Past Surgical History / Comment(s): Bx throat, colonoscopy Past Anesthesia/Blood Transfusion Reactions: No Reported Reaction Additional Past Anesthesia/Blood Transfusion Reaction / Comment(s): Difficulty coming out of it Past Psychological History: Depression Smoking Status: Current every day smoker Past Alcohol Use History: None Reported Past Drug Use History: None Reported - Past Family History Father Family Medical History: Liver Disease, Myocardial Infarction ([place]) Additional Family Medical History / Comment(s): from liver failure Mother Family Medical History: Myocardial Infarction ([place]) General Exam Limitations: no limitations General appearance: alert, in no apparent distress Head exam: Present: atraumatic, normocephalic Eye exam: Present: normal appearance, PERRL ENT exam: Present: normal exam, mucous membranes moist Neck exam: Present: normal inspection Respiratory exam: Present: normal lung sounds bilaterally. Absent: respiratory distress, wheezes Cardiovascular Exam: Present: regular rate, normal rhythm GI/Abdominal exam: Present: soft. Absent: distended, tenderness Rectal exam: Present: deferred Extremities exam: Present: pedal edema (Patient has 4+ pitting edema bilaterally. Patient states that he has some drainage from the left anterior leg however there is none noted on exam.) Back exam: Present: normal inspection Neurological exam: Present: alert, oriented X3 Psychiatric exam: Present: normal affect, normal mood Skin exam: Present: warm, dry, intact Course Vital Signs 09/21/17 09/21/17 09/21/17 20:50 21:20 22:51 Temperature 98.2 F 98.0 F 98.1 F Pulse Rate 102 H 110 H 98 Respiratory 20 16 14 Rate Blood Pressure 150/92 139/65 166/85 O2 Sat by Pulse 95 94 L 96 Oximetry Medical Decision Making - Medical Decision Making Patient is a 56-year-old female presents with chief complaint of bilateral leg swelling. On initial evaluation, vital signs are stable, patient is in no acute distress. Exam is benign, patient does have 4+ pitting edema of the lower extremities. She has no previously diagnosed history of congestive heart failure. Patient to be evaluated with basic cardiac labs including d-dimer. We will obtain an EKG. EKG performed at 2128 shows normal sinus rhythm with a rate of 94 bpm. EKG is otherwise unremarkable. 1 AM Evaluation this patient is unremarkable. Cardiac enzymes are negative. D- dimer is mildly elevated at 0.54, ultrasound of the lower extremities does not reveal any evidence of DVT. At this time, there is no indication of life- threatening etiology of lower extremity edema. He was instructed to use compression stockings and elevate her legs at home. She is instructed to follow -up with primary care in 1-2 days, return to the emergency department if symptoms worsen or change. - Lab Data Result diagrams: 09/21/17 21:38 09/21/17 21:38 Lab Results 09/21/17 09/21/17 09/21/17 Range/Units 21:38 21:38 21:38 WBC 7.8 (3.8-10.6) k/uL RBC 5.00 (3.80-5.40) m/uL Hgb 13.8 (11.4-16.0) gm/dL Hct 41.5 (34.0-46.0) % MCV 83.1 (80.0-100.0) fL MCH 27.7 (25.0-35.0) pg MCHC 33.3 (31.0-37.0) g/dL RDW 14.6 (11.5-15.5) % Plt Count 128 L (150-450) k/uL Neutrophils % 67 % Lymphocytes % 26 % Monocytes % 5 % Eosinophils % 1 % Basophils % 0 % Neutrophils # 5.2 (1.3-7.7) k/uL Lymphocytes # 2.1 (1.0-4.8) k/uL Monocytes # 0.4 (0-1.0) k/uL Eosinophils # 0.1 (0-0.7) k/uL Basophils # 0.0 (0-0.2) k/uL D-Dimer 0.54 (<0.60) mg/L FEU Sodium 140 (137-145) mmol/L Potassium 4.0 (3.5-5.1) mmol/L Chloride 105 (98-107) mmol/L Carbon Dioxide 23 (22-30) mmol/L Anion Gap 12 mmol/L BUN 20 H (7-17) mg/dL Creatinine 0.89 (0.52-1.04) mg/dL Est GFR (CKD-EPI)AfAm 84 (>60 ml/min/1.73 sqM) Est GFR (CKD-EPI)NonAf 73 (>60 ml/min/1.73 sqM) Glucose 118 H (74-99) mg/dL Calcium 9.5 (8.4-10.2) mg/dL Troponin I (0.000-0.034) ng/mL NT-Pro-B Natriuret Pep pg/mL 09/21/17 09/21/17 Range/Units 21:38 21:38 WBC (3.8-10.6) k/uL RBC (3.80-5.40) m/uL Hgb (11.4-16.0) gm/dL Hct (34.0-46.0) % MCV (80.0-100.0) fL MCH (25.0-35.0) pg MCHC (31.0-37.0) g/dL RDW (11.5-15.5) % Plt Count (150-450) k/uL Neutrophils % % Lymphocytes % % Monocytes % % Eosinophils % % Basophils % % Neutrophils # (1.3-7.7) k/uL Lymphocytes # (1.0-4.8) k/uL Monocytes # (0-1.0) k/uL Eosinophils # (0-0.7) k/uL Basophils # (0-0.2) k/uL D-Dimer (<0.60) mg/L FEU Sodium (137-145) mmol/L Potassium (3.5-5.1) mmol/L Chloride (98-107) mmol/L Carbon Dioxide (22-30) mmol/L Anion Gap mmol/L BUN (7-17) mg/dL Creatinine (0.52-1.04) mg/dL Est GFR (CKD-EPI)AfAm (>60 ml/min/1.73 sqM) Est GFR (CKD-EPI)NonAf (>60 ml/min/1.73 sqM) Glucose (74-99) mg/dL Calcium (8.4-10.2) mg/dL Troponin I <0.012 (0.000-0.034) ng/mL NT-Pro-B Natriuret Pep 129 pg/mL Disposition Clinical Impression: Lower extremity edema Disposition: HOME SELF-CARE Condition: Good Instructions: Leg Edema (ED) Is patient prescribed a controlled substance at d/c from ED?: No Referrals: Jocelyn Gutiérrez MD [Primary Care Provider] - 1-2 days
[2017-09-21 21:53] LABS: Basophils % (A) 0 %; Eosinophils # (A) 0.1 k/uL (0-0.7); Eosinophils % (A) 1 %; HCT 41.5 % (34.0-46.0); HGB 13.8 gm/dL (11.4-16.0); Lymphocytes # (A) 2.1 k/uL (1.0-4.8); Lymphocytes % (A) 26 %; MCH 27.7 pg (25.0-35.0); MCHC 33.3 g/dL (31.0-37.0); MCV 83.1 fL (80.0-100.0); Mean Platelet Volume 9.9; Monocytes # (A) 0.4 k/uL (0-1.0); Monocytes % (A) 5 %; Neutrophils # (A) 5.2 k/uL (1.3-7.7); Neutrophils % (A) 67 %; Platelet Count 128 k/uL (150-450); RDW 14.6 % (11.5-15.5); WBC 7.8 k/uL (3.8-10.6)
--- NOTE | 2017-09-21 21:56 | XR ---
EXAMINATION TYPE: XR chest 2V DATE OF EXAM: 09/21/2017 COMPARISON: 04/23/2017 HISTORY: Shortness of breath TECHNIQUE: Frontal and lateral views of the chest are obtained. FINDINGS: Scattered senescent parenchymal changes noted. Hyperinflation compatible with COPD. No evidence for infiltrate. No evidence for atelectasis. Heart size is stable. Mediastinal structures are stable and grossly unremarkable. No evidence for hilar prominence. Degenerative changes dorsal spine. IMPRESSION: 1. No evidence for acute pulmonary disease.
[2017-09-21 22:04] LABS: Calcium 9.5 mg/dL (8.4-10.2)
[2017-09-21 22:54] VITALS: RESP 14
--- NOTE | 2017-09-22 00:41 | US ---
EXAMINATION TYPE: US venous doppler duplex LE DATE OF EXAM: 09/22/2017 12:14 AM COMPARISON: NONE CLINICAL HISTORY: Pain. Bilateral edema. Limitations due to fibromyalgia. SIDE PERFORMED: Bilateral TECHNIQUE: The lower extremity deep venous system is examined utilizing real time linear array sonog javid with graded compression, doppler sonography and color-flow sonography. VESSELS IMAGED: External Iliac Vein (EIV) Common Femoral Vein Deep Femoral Vein Greater Saphenous Vein * Femoral Vein Popliteal Vein Small Saphenous Vein * Proximal Calf Veins (* superficial vessels) Right Leg: Negative for DVT Left Leg: Negative for DVT No evidence of Bilateral DVT. IMPRESSION: Normal exam. No evidence of deep venous thrombosis in both legs.
[2017-09-22 01:22] VITALS: BP 145/91; PULSE 74; TEMP 97.7
== END 2017-09-22 01:23 | disposition home or self-care (01) ==
LOC: EC 20:43
DX: R60.0 Localized edema (principal); R06.02 Shortness of breath; J44.9 Chronic obstructive pulmonary disease, unspecified; E11.9 Type 2 diabetes mellitus without complications; M79.7 Fibromyalgia; K21.9 Gastro-esophageal reflux disease without esophagitis; E78.5 Hyperlipidemia, unspecified; I10 Essential (primary) hypertension; M19.90 Unspecified osteoarthritis, unspecified site; G40.909 Epilepsy, unspecified, not intractable, without status epilepticus; G25.81 Restless legs syndrome; F32.9 Major depressive disorder, single episode, unspecified; F17.200 Nicotine dependence, unspecified, uncomplicated; Z79.899 Other long term (current) drug therapy; Z79.84 Long term (current) use of oral hypoglycemic drugs; Z79.51 Long term (current) use of inhaled steroids; Z79.1 Long term (current) use of non-steroidal anti-inflammatories (NSAID)
CPT/HCPCS: 36415; 71046; 80048; 83880; 84484; 85025; 85379; 93005; 93970; 99284

== ENCOUNTER → 2017-12-29 | Outpatient (CLI) | payer MEDICARE, OTHER | END | disposition home or self-care (01) | LOC: LABWHC1 10:23 | PROVIDERS: ATTEND Physician Assistant | DX: Z53.9 Procedure and treatment not carried out, unspecified reason (principal) | CPT/HCPCS: 36415; 82040; 82042; 82784; 83916 ==

== ENCOUNTER → 2018-01-03 | Outpatient (CLI) | payer MEDICARE, OTHER | END | disposition home or self-care (01) | LOC: LABWHC1 10:26 | PROVIDERS: ATTEND Physician Assistant | DX: Z53.9 Procedure and treatment not carried out, unspecified reason (principal) ==

== ENCOUNTER → 2018-05-12 | Outpatient (CLI) | payer MEDICARE, OTHER ==
--- NOTE | 2018-05-12 16:26 | NM ---
EXAMINATION TYPE: NM DatScan Brain SPECT DATE OF EXAM: 05/12/2018 COMPARISON: MRI brain April 26, 2017 HISTORY: Tremors per order. Tremors for 4 months with abnormal gait. TECHNIQUE: 10 drops of Lugol's solution was administered 1 hour prior to injection as a thyroid bloc greyson agent. After the administration of 4.29 mCi I-123 Ioflupane DaTscan. Images obtained 3 hours p ost injection. SPECT images of the brain were acquired with axial and coronal reconstructions. FINDINGS: The DaTSCAN demonstrates balanced striatal loss to the caudate and putamina nucleii in the striata. This appearance is consistent with the loss of the pre-synaptic dopaminergic terminals IMPRESSION: This abnormal appearance is supportive of a clinical diagnosis of DLB, idiopathic PD, Pa rkinson?s dementia complex, or PS.
== END | disposition home or self-care (01) ==
LOC: RADNMMAIN 10:59
PROVIDERS: ATTEND Psychiatry & Neurology Neurology
DX: G20 Parkinson's disease (principal); F02.80 Dementia in other diseases classified elsewhere, unspecified severity, without behavioral disturbance, psychotic disturbance, mood disturbance, and anxiety; G25.0 Essential tremor
CPT/HCPCS: 78607; A9584

== ENCOUNTER → 2018-05-25 | Outpatient (CLI) | payer MEDICARE, OTHER | END | disposition home or self-care (01) | LOC: LABWHC1 10:48 | PROVIDERS: ATTEND Nurse Practitioner Acute Care | DX: Z51.81 Encounter for therapeutic drug level monitoring (principal) | CPT/HCPCS: 36415; 82565; 84520 ==

== ENCOUNTER → 2022-11-17 | Outpatient (CLI) | payer OTHER ==
--- NOTE | 2022-11-17 14:00 | CT ---
EXAMINATION TYPE: CT abdomen wo con DATE OF EXAM: 11/17/2022 HISTORY: abdominal pain CT DLP: 696 mGycm. Automated Exposure Control for Dose Reduction was Utilized. TECHNIQUE: CT scan of the abdomen is performed with oral but without IV contrast. COMPARISON: NONE FINDINGS: Within the limitations of a non-contrast study, the following observations are made. LUNG BASES: Lung bases will be addressed on same-day low-dose lung screening CT. LIVER/GB: Contracted gallbladder. PANCREAS: No significant abnormality is seen. SPLEEN: No significant abnormality is seen. ADRENALS: No significant abnormality is seen. KIDNEYS: No renal calculi seen bilaterally. Subcentimeter round lesions medially in the left kidney a re favored benign. BOWEL: Limited oral contrast does not extend to the level of the terminal ileum. No suspicious small or large bowel dilatation. LYMPH NODES: No greater than 1cm abdominal lymph nodes are appreciated. OSSEOUS STRUCTURES: Multilevel facet arthropathy in the mid to lower lumbar spine. OTHER: Mild calcified plaque of the aorta extends into branch vessels. IMPRESSION: No acute findings are evident.
--- NOTE | 2022-11-17 14:06 | CTL ---
EXAMINATION TYPE: CT Low Dose Lung DATE OF EXAM ORDERED: 11/17/2022 HISTORY: Long-term tobacco use. Lung cancer screening CT DLP: [address] CTDI: 3.14 mGy Automated exposure control for dose reduction was used. SCREENING VISIT: Baseline COMPARISON: None TECHNIQUE: Low dose computed tomography scan was performed through the chest at 1 mm thick sections a nd reconstructed images in multiple planes at 1 mm and [address] DIAGNOSTIC QUALITY: Limited, but interpretable Suboptimal due to patient's large body habitus. FINDINGS: LUNG NODULES: None. LUNGS: COPD: Severity: Moderate Fibrosis: Severity: Focal slightly thickened and nodular scarring in the anterior lower lungs includi ng right middle lobe and lingula are present. Lymph nodes: No definitive greater than 1 cm mediastinal Other findings: Ascending aorta measures up to 3.9 cm in diameter axial image 100 RIGHT PLEURAL SPACE: Effusion: None Calcification: None Thickening: None Pneumothorax: None LEFT PLEURAL SPACE: Effusion: None Calcification: None Thickening: None Pneumothorax: None HEART: Heart Size: Normal Coronary Calcification: None Pericardial Effusion: None OTHER FINDINGS: Upper abdomen: None Bony thorax: Scoliotic curvature is seen. Supraclavicular region: None Other: None IMPRESSION: Suboptimal study without concerning greater than 6 mm pulmonary nodule clearly identified . CT LUNG RAD AND CT CHEST RECOMMENDATION: Lung-Rad 1 Negative: Continue annual screening with LDCT in 12 months. S Modifier (other clinically significant findings): None
== END | disposition home or self-care (01) ==
LOC: RADCTMAIN 11:19
PROVIDERS: ATTEND Emergency Medicine
DX: Z12.2 Encounter for screening for malignant neoplasm of respiratory organs (principal); F17.210 Nicotine dependence, cigarettes, uncomplicated; R93.5 Abnormal findings on diagnostic imaging of other abdominal regions, including retroperitoneum
CPT/HCPCS: 71271; 74150

== ENCOUNTER 2023-03-24 14:26 | Inpatient (IN) | payer OTHER ==
--- NOTE | 2023-03-24 14:43 | ED ---
SOB HPI - General Source: patient, RN notes reviewed Mode of arrival: wheelchair Limitations: physical limitation - History of Present Illness MD Complaint: shortness of breath, cough <Minal Valadez - Last Filed: 03/24/23 14:43> <Mohit Neville - Last Filed: 03/24/23 21:08> - General Chief Complaint: Shortness of Breath Stated Complaint: SOB Time Seen by Provider: 03/24/23 14:41 - History of Present Illness Initial Comments: This is a 62 year old female who presents to the emergency department for increasing shortness of breath with exertion. She was sent in by [facility] for evaluation. She does have COPD and wears 3L of oxygen at baseline. She has not had to increase this. Denies any chest pain. (Minal Valadez) This is a 62-year-old female presents emergency Department planning difficulty breathing. Patient states she has a history of COPD and continues to smoke. Patient states she had an appointment with a diesel engine assembler and a diesel engine assembler*in the office immediately told her to go to the emergency department to be admitted. Patient denies any chest pain or palpitations. Patient denies any fever chills or cough. Patient states the difficulty breathing is been getting worse over the last week or 2 to the point where she only has to go to or 3 steps and she is completely out of breath. Patient states she is on oxygen 24 hours a day. Patient denies any recent fever chills or cough. Patient denies any abdominal pain patient denies nausea vomiting diarrhea. Patient denies any increased swelling to the legs. (Mohit Neville) - Related Data Home Medications Medication Instructions Recorded Confirmed Chlorthalidone 25 mg PO DAILY 12/02/15 09/21/17 Divalproex Sodium [Divalproex 1,000 mg PO DAILY 12/02/15 09/21/17 Sodium ER] HYDROcodone/APAP 10-325MG [[place] 1 tab PO QID PRN 12/02/15 09/21/17 10-325] Omeprazole [PriLOSEC] 40 mg PO DAILY 12/02/15 09/21/17 Pregabalin [Lyrica] 150 mg PO TID 12/02/15 09/21/17 Simvastatin [Zocor] 40 mg PO HS 12/02/15 09/21/17 lisinopriL [Zestril] 2.5 mg PO DAILY 12/02/15 09/21/17 metFORMIN HCL [Glucophage] 500 mg PO DAILY 12/02/15 09/21/17 traZODone HCL 150 mg PO HS 12/02/15 09/21/17 Tiotropium 18 Mcg/Puff [Spiriva] 1 cap INHALATION RT-HS 09/12/16 09/21/17 DULoxetine HCL [Cymbalta] 60 mg PO BID 04/23/17 09/21/17 Solifenacin Succinate [Vesicare] 5 mg PO DAILY 04/23/17 09/21/17 busPIRone HCL 15 mg PO BID 04/23/17 09/21/17 Cholecalciferol (Vitamin D3) 2,000 unit PO DAILY 09/21/17 09/21/17 [Vitamin D3] Fluticasone/Vilanterol [[place] 1 puff INHALATION RT-HS 09/21/17 09/21/17 Ellipta 200-25 Mcg INH] Naproxen [EC-Naprosyn] 500 mg PO BID 09/21/17 09/21/17 Previous Rx's Medication Instructions Recorded Aspirin EC [Ecotrin Low Dose] 81 mg PO DAILY #30 tablet. 04/26/17 Allergies Allergy/AdvReac Type Severity Reaction Status Date / Time No Known Allergies Allergy Verified 09/21/17 22:04 Review of Systems ROS Other: All systems not noted in ROS Statement are negative. <Minal Valadez - Last Filed: 03/24/23 14:43> ROS Other: All systems not noted in ROS Statement are negative. <Mohit Neville - Last Filed: 03/24/23 21:08> ROS Statement: Those systems with pertinent positive or pertinent negative responses have been documented in the HPI. Past Medical History Past Medical History: Asthma, COPD, Diabetes Mellitus, Eye Disorder, Fibr omyalgia, GERD/Reflux, Hyperlipidemia, Hypertension, Osteoarthritis (OA), Pneumonia, Seizure Disorder, Syncope Additional Past Medical History / Comment(s): RLS History of Any Multi-Drug Resistant Organisms: None Reported Past Surgical History: Bladder Surgery, Tubal Ligation Additional Past Surgical History / Comment(s): Bx throat, colonoscopy Past Anesthesia/Blood Transfusion Reactions: No Reported Reaction Additional Past Anesthesia/Blood Transfusion Reaction / Comment(s): Difficulty coming out of it Past Psychological History: Depression Past Alcohol Use History: None Reported Past Drug Use History: None Reported - Past Family History Father Family Medical History: Liver Disease, Myocardial Infarction ([place]) Additional Family Medical History / Comment(s): from liver failure Mother Family Medical History: Myocardial Infarction ([place]) <Minal Valadez - Last Filed: 03/24/23 14:43> General Exam Limitations: physical limitation <Minal Valadez - Last Filed: 03/24/23 14:43> <Mohit Neville - Last Filed: 03/24/23 21:08> - General Exam Comments Initial Comments: General: Well-appearing, nontoxic, no acute distress. Head: Normocephalic, atraumatic Eyes: PERRLA, EOMI ENT: Airway patent Chest: Nonlabored breathing Skin: No visual rash, normal skin tone Neuro: Alert and oriented 3 Musculoskeletal: No gross abnormalities I completed the quick note portion of this chart signed Minal Valadez PA-C (Minal Valadez) GENERAL: Patient is well-developed and well-nourished. Patient is nontoxic and well- hydrated and is in moderate distress. ENT: Neck is soft and supple. No significant lymphadenopathy is noted. Oropharynx is clear. Moist mucous membranes. Neck has full range of motion without eliciting any pain. EYES: The sclera were anicteric and conjunctiva were pink and moist. Extraocular movements were intact and pupils were equal round and reactive to light. Eyelids were unremarkable. PULMONARY: Patient has diminished breath sounds bilaterally. Wheezing. CARDIOVASCULAR: Patient is tachycardic at 110 bpm ABDOMEN: Soft and nontender with normal bowel sounds. No palpable organomegaly was noted. There is no palpable pulsatile mass. SKIN: Skin is clear with no lesions or rashes and otherwise unremarkable. NEUROLOGIC: Patient is alert and oriented x3. Cranial nerves II through XII are grossly intact. Motor and sensory are also intact. Normal speech, volume and content. Symmetrical smile. MUSCULOSKELETAL: Normal extremities with adequate strength and full range of motion. LYMPHATICS: No significant lymphadenopathy is noted PSYCHIATRIC: Normal psychiatric evaluation. (Mohit Neville) Course Vital Signs 03/24/23 03/24/23 03/24/23 14:34 20:15 20:37 Temperature 98.7 F Pulse Rate 101 H 86 89 Respiratory 20 20 Rate Blood Pressure 130/62 124/72 O2 Sat by Pulse 94 L 96 Oximetry Medical Decision Making - Lab Data Result diagrams: 03/24/23 17:13 03/24/23 17:13 <Mohit Neville - Last Filed: 03/24/23 21:08> - Medical Decision Making EKG was interpreted by myself. EKG shows a sinus tachycardia at 112 bpm IL interval 260 QRS is 99 Q-T intervals 339 QTC is 446. Patient's EKG shows no ST segment elevation or depression. Was pt. sent in by a medical professional or institution (, PA, HOME ENERGY CONSULTANT, urgent care, hospital, or usp...) When possible be specific @ -Patient's diesel engine assembler sent into the emergency department Did you speak to anyone other than the patient for history (EMS, parent, family, police, friend...)? What history was obtained from this source @ -No Did you review nursing and triage notes (agree or disagree)? Why? @ -I reviewed and agree with nursing and triage notes Were old charts reviewed (outside hosp., previous admission, EMS record, old EKG, old radiological studies, urgent care reports/EKG's, usp records)? Report findings @ -I reviewed prior charts from prior labwork on this patient Differential Diagnosis (chest pain, altered mental status, abdominal pain women, abdominal pain men, vaginal bleeding, weakness, fever, dyspnea, syncope, headache, dizziness, GI bleed, back pain, seizure, CVA, palpatations, mental health, musculoskeletal)? @ -Differential Dyspnea: Coronary syndrome, arrhythmia, tamponade, asthma, COPD, pulmonary embolism, pneumonia, pneumothorax, pulmonary effusion, anaphylaxis, diabetic ketoacidosis, flailed chest, pulmonary contusion, diaphragmatic rupture, anemia, neuromuscular, this is not meant to be an all-inclusive list. EKG interpreted by me (3pts min.). @ -As above X-rays interpreted by me (1pt min.). @ -X-ray shows no acute abnormality CT interpreted by me (1pt min.). @ -None done U/S interpreted by me (1pt. min.). @ -None done What testing was considered but not performed or refused? (CT, X-rays, U/S, labs)? Why? @ -None What meds were considered but not given or refused? Why? @ -None Did you discuss the management of the patient with other professionals (professionals i.e. , PA, HOME ENERGY CONSULTANT, lab, RT, psych nurse, social worker psychiatric, admiralty lawyer, teacher, chief digital officer, case technician)? Give summary @ -I spoke with [facility] physicians and they agreed to admit the patient Was smoking cessation discussed for >3mins.? @ -No Was critical care preformed (if so, how long)? @ -No Were there social determinants of health that impacted care today? How? (Homelessness, low income, unemployed, alcoholism, drug addiction, transportation, low edu. Level, literacy, decrease access to med. care, halfway, re hab)? @ -No Was there de-escalation of care discussed even if they declined (Discuss DNR or withdrawal of care, Hospice)? DNR status @ -No What co-morbidities impacted this encounter? (DM, HTN, Smoking, COPD, CAD, Cancer, CVA, ARF, Chemo, Hep., AIDS, mental health diagnosis, sleep apnea, morbid obesity)? @ -None Was patient admitted / discharged? Hospital course, mention meds given and route, prescriptions, significant lab abnormalities, going to OR and other pertinent info. @ -Patient was getting multiple breathing treatments in the emergency department as well as steroids and I started the patient and her buttocks. Patient was feeling better but continued to wheeze. I spoke with [facility] physicians agreed to admit the patient admitted the patient I wrote admitting orders Undiagnosed new problem with uncertain prognosis? @ -No Drug Therapy requiring intensive monitoring for toxicity (Heparin, Nitro, Insulin, Cardizem)? @ -No Were any procedures done? @ -No Diagnosis/symptom? @ -COPD exacerbation Acute, or Chronic, or Acute on Chronic? @ -Acute Uncomplicated (without systemic symptoms) or Complicated (systemic symptoms)? @ -Complicated Side effects of treatment? @ -No Exacerbation, Progression, or Severe Exacerbation? @ -No Poses a threat to life or bodily function? How? (Chest pain, [place], MS, pneumonia, PE, COPD, DKA, ARF, appy, cholecystitis, CVA, Diverticulitis, Homicidal, Suicidal, threat to staff... and all critical care pts) @ -Yes patient could become hypoxic and cause end organ dysfunction (Mohit Neville) - Lab Data Lab Results 03/24/23 03/24/23 03/24/23 Range/Units 17:13 17:13 17:13 WBC 10.4 (3.8-10.6) k/uL RBC 5.03 (3.80-5.40) m/uL Hgb 14.1 (11.4-16.0) gm/dL Hct 43.5 (34.0-46.0) % MCV 86.6 (80.0-100.0) fL MCH 28.1 (25.0-35.0) pg MCHC 32.4 (31.0-37.0) g/dL RDW 13.5 (11.5-15.5) % Plt Count 203 (150-450) k/uL MPV 9.7 Neutrophils % 79 % Lymphocytes % 17 % Monocytes % 3 % Eosinophils % 0 % Basophils % 0 % Neutrophils # 8.3 H (1.3-7.7) k/uL Lymphocytes # 1.7 (1.0-4.8) k/uL Monocytes # 0.3 (0-1.0) k/uL Eosinophils # 0.0 (0-0.7) k/uL Basophils # 0.0 (0-0.2) k/uL PT 10.4 (10.0-12.5) sec INR 0.9 (<1.2) APTT 23.5 (22.0-30.0) sec Sodium 141 (137-145) mmol/L Potassium 3.7 (3.5-5.1) mmol/L Chloride 103 (98-107) mmol/L Carbon Dioxide 29 (22-30) mmol/L Anion Gap 9 mmol/L BUN 21 H (7-17) mg/dL Creatinine 1.07 H (0.52-1.04) mg/dL Est GFR (CKD-EPI)AfAm 65 (>60 ml/min/1.73 sqM) Est GFR (CKD-EPI)NonAf 57 (>60 ml/min/1.73 sqM) Glucose 233 H (74-99) mg/dL Plasma Lactic Acid Marquez (0.7-2.0) mmol/L Calcium 9.6 (8.4-10.2) mg/dL Total Bilirubin 0.3 (0.2-1.3) mg/dL AST 17 (14-36) U/L ALT 20 (4-34) U/L Alkaline Phosphatase 80 (38-126) U/L Troponin I (0.000-0.034) ng/mL NT-Pro-B Natriuret Pep 22 pg/mL Total Protein 6.6 (6.3-8.2) g/dL Albumin 4.1 (3.5-5.0) g/dL 03/24/23 03/24/23 Range/Units 17:13 17:13 WBC (3.8-10.6) k/uL RBC (3.80-5.40) m/uL Hgb (11.4-16.0) gm/dL Hct (34.0-46.0) % MCV (80.0-100.0) fL MCH (25.0-35.0) pg MCHC (31.0-37.0) g/dL RDW (11.5-15.5) % Plt Count (150-450) k/uL MPV Neutrophils % % Lymphocytes % % Monocytes % % Eosinophils % % Basophils % % Neutrophils # (1.3-7.7) k/uL Lymphocytes # (1.0-4.8) k/uL Monocytes # (0-1.0) k/uL Eosinophils # (0-0.7) k/uL Basophils # (0-0.2) k/uL PT (10.0-12.5) sec INR (<1.2) APTT (22.0-30.0) sec Sodium (137-145) mmol/L Potassium (3.5-5.1) mmol/L Chloride (98-107) mmol/L Carbon Dioxide (22-30) mmol/L Anion Gap mmol/L BUN (7-17) mg/dL Creatinine (0.52-1.04) mg/dL Est GFR (CKD-EPI)AfAm (>60 ml/min/1.73 sqM) Est GFR (CKD-EPI)NonAf (>60 ml/min/1.73 sqM) Glucose (74-99) mg/dL Plasma Lactic Acid Marquez 1.0 (0.7-2.0) mmol/L Calcium (8.4-10.2) mg/dL Total Bilirubin (0.2-1.3) mg/dL AST (14-36) U/L ALT (4-34) U/L Alkaline Phosphatase (38-126) U/L Troponin I <0.012 (0.000-0.034) ng/mL NT-Pro-B Natriuret Pep pg/mL Total Protein (6.3-8.2) g/dL Albumin (3.5-5.0) g/dL Critical Care Time Critical Care Time: Yes Total Critical Care Time: 35 <Mohit Neville - Last Filed: 03/24/23 21:08> Disposition <Minal Valadez - Last Filed: 03/24/23 14:43> Time of Disposition: 21:07 <Mohit Neville - Last Filed: 03/24/23 21:08> Clinical Impression: Acute exacerbation of chronic obstructive pulmonary disease Disposition: ADMITTED IP TO THIS HOSP Referrals: Myles Reese MD [Primary Care Provider] - 1-2 days
--- NOTE | 2023-03-24 15:33 | XR ---
EXAMINATION TYPE: XR chest 2V DATE OF EXAM: 03/24/2023 3:29 PM COMPARISON: Chest radiographs from 09/21/2017 TECHNIQUE: XR chest 2V Frontal and lateral views of the chest. CLINICAL INDICATION:Female, 62 years old with history of difficulty breathing; FINDINGS: Lungs/Pleura: There is no evidence of pleural effusion, focal consolidation, or pneumothorax. Simila r bibasilar linear scarring. Pulmonary vascularity: Unremarkable. Heart/mediastinum: Cardiomediastinal silhouette is unremarkable. Atherosclerotic calcifications are seen in the aorta. Musculoskeletal: No acute osseous pathology. IMPRESSION: No acute cardiopulmonary disease/process.
[2023-03-24 17:16] LABS: Basophils % (A) 0 %; Eosinophils % (A) 0 %; HCT 43.5 % (34.0-46.0); HGB 14.1 gm/dL (11.4-16.0); Lymphocytes # (A) 1.7 k/uL (1.0-4.8); Lymphocytes % (A) 17 %; MCH 28.1 pg (25.0-35.0); MCHC 32.4 g/dL (31.0-37.0); MCV 86.6 fL (80.0-100.0); Mean Platelet Volume 9.7; Monocytes # (A) 0.3 k/uL (0-1.0); Monocytes % (A) 3 %; Neutrophils # (A) 8.3 k/uL (1.3-7.7); Neutrophils % (A) 79 %; Platelet Count 203 k/uL (150-450); RBC 5.03 m/uL (3.80-5.40); RDW 13.5 % (11.5-15.5); WBC 10.4 k/uL (3.8-10.6)
[2023-03-24 17:25] LABS: ALT 20 U/L (4-34); AST 17 U/L (14-36); African American GFR (CKD) 65 (>60 ml/min/1.73 sqM); Albumin 4.1 g/dL (3.5-5.0); Alkaline Phosphatase 80 U/L (38-126); Anion Gap 9 mmol/L; Blood Urea Nitrogen 21 mg/dL (7-17); Calcium 9.6 mg/dL (8.4-10.2); Carbon Dioxide 29 mmol/L (22-30); Chloride 103 mmol/L (98-107); Glucose 233 mg/dL (74-99); Non-African American GFR(CKD) 57 (>60 ml/min/1.73 sqM); Potassium 3.7 mmol/L (3.5-5.1); Sodium 141 mmol/L (137-145); Total Bilirubin 0.3 mg/dL (0.2-1.3); Total Protein 6.6 g/dL (6.3-8.2)
[2023-03-24 17:34] LABS: NT-Pro-B-Type Natriuretic Pept 22 pg/mL
[2023-03-24 17:43] LABS: INR 0.9 (<1.2); Partial Thromboplastin Time 23.5 sec (22.0-30.0); Prothrombin Time 10.4 sec (10.0-12.5)
[2023-03-24] MEDS ORDERED: IPRATROPIUM 0.5 MG/2.5 ML NEBU INHALATION STA (19:53)
[2023-03-24] MEDS ORDERED: methylPREDNISolone SOD SUCCI 125 MG/2 ML VIAL IV STA (19:53)
[2023-03-24] MEDS ORDERED: ALBUTEROL NEBULIZED 2.5 MG/3 ML INHALATION STA (19:53)
[2023-03-24] MEDS ORDERED: SODIUM CHLORIDE 0.9% 500 ML 500 ML IV STA (19:53)
[2023-03-24] MEDS ORDERED: cefTRIAXone IN SWFI 1,000 MG/10 ML SYRINGE IVP STA (19:54)
[2023-03-24] MEDS ORDERED: NALOXONE 0.4 MG/ML 1 ML VIAL IVP PRN (21:08)
[2023-03-24] MEDS ORDERED: IPRATROPIUM-ALBUTEROL 3 ML NEB INHALATION PRN (21:31)
[2023-03-25] MEDS ORDERED: IPRATROPIUM-ALBUTEROL 3 ML NEB INHALATION SCH
[2023-03-25] MEDS: methylPREDNISolone SOD SUCCI 125 MG/2 ML VIAL IV SCH ×3 (00:57→12:55)
--- NOTE | 2023-03-25 04:56 | P.HPIM ---
History of Present Illness H&P Date: 03/24/23 Chief Complaint: SOB 62 year old female with COPD on home oxygen 3 L she is coming upon recommendations of her blast furnace tender to go tot [facility] , she presented to their office with SOB. she reports that she has progressive SOB over the past 2 weeks, and recently reached a point where she feels SOB just walking 3 steps away from her chair. she had a little flood in the bathroom , and took her all day to clean it , due to SOB with the slightest exertion and having to take multiple breaks. she ran out of nebulizer medicine, she uses home oxygen and did not increase the oxygen , denies any fever, chills URI symptoms . reports wheezing and chest tightness, denies orthopnea , or leg swelling. denies any recent travel or hospital stay , denies any history of blood clots. denies any known sick contacts she continues to smoke cigarettes. she denies any known cardiac history , CAD or CHF. review of systems Pertinent positives as noted in HPI. All other systems were reviewed and are negative on exam Constitutional: No acute distress, conversant, pleasant Eyes: Anicteric sclerae, moist conjunctiva, Pupils equal round reactive to light ENMT: NC/AT Oropharynx clear, no erythema, or exudates Neck: Supple, no masses, or JVD No carotid bruits No thyromegaly Lungs: prolonged expiratory phase with expiratory wheezing Clear to percussion Normal respiratory effort, no accessory muscle use Cardiovascular: Heart regular in rate and rhythm, No murmurs, gallops, or rubs No peripheral edema Abdominal: Soft Nontender, no guarding, rebound or rigidity Abdomen moving with respiration Normoactive bowel sounds No hepatomegaly, No splenomegaly No palpable mass No abdominal wall hernia noted Extremities: No digital cyanosis No clubbing Pedal pulses intact and symmetrical Radial pulses intact and symmetrical No calf tenderness Psychiatric: Alert and oriented to person, place and time Appropriate affect fair judgement Neuro Muscles Strength 5/5 in all 4 extremities Sensation to light touch grossly present throughout Cranial nerves II-XII grossly intact Lymphatics: no palpable cervical or supraclavicular lymph nodes Past Medical History Past Medical History: Asthma, COPD, Diabetes Mellitus, Eye Disorder, Fibromyalgia, GERD/Reflux, Hyperlipidemia, Hypertension, Osteoarthritis (OA), Pneumonia, Seizure Disorder, Syncope Additional Past Medical History / Comment(s): RLS History of Any Multi-Drug Resistant Organisms: None Reported Past Surgical History: Bladder Surgery, Tubal Ligation Additional Past Surgical History / Comment(s): Bx throat, colonoscopy Past Anesthesia/Blood Transfusion Reactions: No Reported Reaction Additional Past Anesthesia/Blood Transfusion Reaction / Comment(s): Difficulty coming out of it Past Psychological History: Depression Past Alcohol Use History: None Reported Past Drug Use History: None Reported - Past Family History Father Family Medical History: Liver Disease, Myocardial Infarction ([place]) Additional Family Medical History / Comment(s): from liver failure Mother Family Medical History: Myocardial Infarction ([place]) Medications and Allergies Home Medications Medication Instructions Recorded Confirmed Type HYDROcodone/APAP 10-325MG [[place] 1 tab PO QID PRN 12/02/15 03/24/23 History 10-325] traZODone HCL 300 mg PO HS 12/02/15 03/24/23 History Aspirin EC [Ecotrin Low Dose] 81 mg PO DAILY #30 tablet. 04/26/17 03/24/23 Rx Albuterol Inhaler [Ventolin Hfa 2 puff INHALATION RT-Q6H PRN 03/24/23 03/24/23 History Inhaler] Albuterol Nebulized [Ventolin 2.5 mg INHALATION RT-Q6H PRN 03/24/23 03/24/23 History Nebulized] Atorvastatin [Lipitor] 80 mg PO HS 03/24/23 03/24/23 History Cholecalciferol [Vitamin D3 (25 50 mcg PO DAILY 03/24/23 03/24/23 History Mcg = 1000 Iu)] Dulaglutide [Trulicity] 3 mg SQ FR 03/24/23 03/24/23 History EPINEPHrine (Auto Inject) [Epipen] 0.3 mg IM ONCE PRN 03/24/23 03/24/23 History Empagliflozin [Jardiance] 25 mg PO DAILY 03/24/23 03/24/23 History Escitalopram [Lexapro] 10 mg PO DAILY 03/24/23 03/24/23 History Fenofibrate 150 mg PO DAILY 03/24/23 03/24/23 History Ferrous Sulfate [Feosol] 325 mg PO DAILY 03/24/23 03/24/23 History Fluticasone/Umeclidin/Vilanter 1 puff INHALATION RT-DAILY 03/24/23 03/24/23 History [Trelegy Ellipta 100-62.5-25] Glimepiride [Amaryl] 8 mg PO AC-[id number] 03/24/23 03/24/23 History Insulin Glargine,Hum.rec.anlog 20 units SQ HS 03/24/23 03/24/23 History [Lantus Solostar Pen] Magnesium Oxide [Mag-Ox] 400 mg PO DAILY 03/24/23 03/24/23 History Nicotine 21Mg/24Hr Patch [Habitrol] 1 patch TRANSDERM DAILY PRN 03/24/23 03/24/23 History Nystatin 100,000Unit/gm Cream 1 applic TOPICAL BID PRN 03/24/23 03/24/23 History [Mycostatin Cream] Omeprazole [PriLOSEC] 20 mg PO DAILY 03/24/23 03/24/23 History Pregabalin [Lyrica] 200 mg PO TID 03/24/23 03/24/23 History lisinopriL [Zestril] 5 mg PO DAILY 03/24/23 03/24/23 History Allergies Allergy/AdvReac Type Severity Reaction Status Date / Time No Known Allergies Allergy Verified 03/24/23 21:57 Physical Exam Vitals: Vital Signs Temp Pulse Resp BP Pulse Ox 03/24/23 14:34 98.7 F 101 H 20 130/62 94 L Intake and Output 03/24/23 03/24/23 03/24/23 06:59 14:59 22:59 Other: Weight 104.326 kg Results CBC & Chem 7: 03/24/23 17:13 03/24/23 17:13 Labs: Abnormal Lab Results - Last 24 Hours (Table) 03/24/23 03/24/23 Range/Units 17:13 17:13 Neutrophils # 8.3 H (1.3-7.7) k/uL BUN 21 H (7-17) mg/dL Creatinine 1.07 H (0.52-1.04) mg/dL Glucose 233 H (74-99) mg/dL Assessment and Plan Assessment: 62 year old female with chronic hypoxic respiratory failure and COPD , on 3 L home oxygen , presenting with exertional dyspnea and wheezing , I discussed the case with ED doc and I accepted the admission for acute COPD exacerbation with anticipated length of stay > 2 midnights acute COPD exacerbation chronic hypoxic respiratory failure supplemental oxygen as needed CXR no acute pathology augmentin BID duoneb PRN and scheduled IV steroids methyprednisolone 60 mg q6 hr DM insulin sliding scale hypertension resume lisinopril blood work unremarkable hgb 14, WBC 10 Na 141, K 3.7 Cr 1.07 Trops negative EKG sinus tachy , no acute ST changes full code DVT PPX heparin sc tid
[2023-03-25] MEDS ORDERED: DEXTROSE 50% SYRINGE 50 ML IVP PRN ×2 (04:57)
[2023-03-25 07:37] LABS: Glucose,Whole Blood 229 mg/dL (70-110)
[2023-03-25] MEDS: IPRATROPIUM-ALBUTEROL 3 ML NEB INHALATION SCH ×4 (07:40→19:49)
[2023-03-25] MEDS: ESCITALOPRAM 10 MG TAB PO SCH (09:54)
[2023-03-25] MEDS: AMOXIC-POT CLAV 875-125MG 1 EACH TAB PO SCH ×2 (09:54→21:28)
[2023-03-25] MEDS: ASPIRIN 81 MG PO SCH (09:54)
[2023-03-25] MEDS: INSULIN ASPART (NovoLOG) 100 UNIT/ML VIAL SQ SCH ×4 (09:54→21:27)
[2023-03-25] MEDS: PANTOPRAZOLE 40 MG TABLET PO SCH (09:54)
[2023-03-25] MEDS: lisinopriL 5 MG TAB PO SCH (09:54)
[2023-03-25] MEDS: NICOTINE 21MG/24HR PATCH TRANSDERM SCH (10:06)
[2023-03-25] MEDS: PREGABALIN 100 MG CAP PO SCH ×3 (10:06→21:28)
[2023-03-25] MEDS ORDERED: IBUPROFEN 200 MG TAB PO PRN (10:56)
--- NOTE | 2023-03-25 12:04 | P.PN ---
Subjective Progress Note Date: 03/25/23 No new complaints. Breathing is the same per patient. She was counseled extensively on tobacco cessation. Nicotine patch requested. Gen: awake, alert HEENT: normocephalic, atraumatic, good hearing acuity, moist mucous membranes Resp: good air exchange, breathing comfortably with no accessory muscle use, diffuse wheezing CVS: good distal perfusion x 4, GI: soft, NTTP, ND : no SPT, no CVAT, peterson catheter not present MSK: no pitting edema, no clubbing Neuro: non-focal, moving all extremities Psych: cooperative, euthymic mood Hospital Course: 62 year old female with COPD on home oxygen 3 L presented for dyspnea, increased in production. Assessment/plan: acute COPD exacerbation chronic hypoxic respiratory failure supplemental oxygen as needed CXR no acute pathology augmentin BID duoneb PRN and scheduled IV steroids methyprednisolone 60 mg q6 hr Nicotine patch 21 mg per 24 hours DM insulin sliding scale hypertension resume lisinopril full code DVT PPX heparin sc tid Objective - Vital Signs Vital signs: Vital Signs Temp 97.7 F 03/25/23 07:43 Pulse 108 H 03/25/23 11:38 Resp 17 03/25/23 07:43 BP 143/88 03/25/23 07:43 Pulse Ox 92 L 03/25/23 07:44 FiO2 Intake & Output 03/24/23 03/25/23 03/25/23 18:59 06:59 18:59 Intake Total 180 Balance 180 Weight 104.326 kg 104.326 kg Intake: Oral 180 - Labs CBC & Chem 7: 03/24/23 17:13 03/24/23 17:13 Labs: Abnormal Lab Results - Last 24 Hours (Table) 03/24/23 03/24/23 03/25/23 Range/Units 17:13 17:13 07:34 Neutrophils # 8.3 H (1.3-7.7) k/uL BUN 21 H (7-17) mg/dL Creatinine 1.07 H (0.52-1.04) mg/dL Glucose 233 H (74-99) mg/dL POC Glucose (mg/dL) 229 H (70-110) mg/dL
[2023-03-25 12:23] LABS: Glucose,Whole Blood 318 mg/dL (70-110)
[2023-03-25 17:34] LABS: Glucose,Whole Blood 285 mg/dL (70-110)
[2023-03-25] MEDS: SYMBICORT 160-4.5 MCG INHALER INHALATION SCH (19:49)
[2023-03-25 20:19] LABS: Glucose,Whole Blood 412 mg/dL (70-110)
[2023-03-25] MEDS: traZODone HCL 100 MG TAB PO SCH (21:27)
[2023-03-25] MEDS: ATORVASTATIN 80 MG TAB PO SCH (21:28)
[2023-03-26] MEDS: PANTOPRAZOLE 40 MG TABLET PO SCH (06:57)
[2023-03-26 07:48] LABS: Glucose,Whole Blood 309 mg/dL (70-110)
[2023-03-26] MEDS: SYMBICORT 160-4.5 MCG INHALER INHALATION SCH ×2 (08:07→19:32)
[2023-03-26] MEDS: IPRATROPIUM-ALBUTEROL 3 ML NEB INHALATION SCH ×4 (08:07→19:32)
[2023-03-26] MEDS: ASPIRIN 81 MG PO SCH (08:33)
[2023-03-26] MEDS: predniSONE 20 MG TAB PO SCH (08:33)
[2023-03-26] MEDS: ESCITALOPRAM 10 MG TAB PO SCH (08:33)
[2023-03-26] MEDS: INSULIN ASPART (NovoLOG) 100 UNIT/ML VIAL SQ SCH ×4 (08:33→21:19)
[2023-03-26] MEDS: AMOXIC-POT CLAV 875-125MG 1 EACH TAB PO SCH ×2 (08:33→21:19)
[2023-03-26] MEDS: NICOTINE 21MG/24HR PATCH TRANSDERM SCH (08:33)
[2023-03-26] MEDS: lisinopriL 5 MG TAB PO SCH (08:33)
[2023-03-26] MEDS: PREGABALIN 100 MG CAP PO SCH ×3 (08:34→20:15)
[2023-03-26] MEDS ORDERED: INSULIN DETEMIR (LEVEMIR) 100 UNIT/ML SYR SQ STA (09:32)
[2023-03-26] MEDS ORDERED: FLUTICASONE 50MCG/SPRAY NASAL 16GM EA NOSTRIL PRN (09:39)
[2023-03-26] MEDS: FENOFIBRATE 160 MG TAB PO SCH (10:09)
[2023-03-26] MEDS: FERROUS SULFATE 325 MG TAB PO SCH (10:10)
[2023-03-26 11:49] LABS: Basophils % (A) 0 %; Eosinophils % (A) 0 %; HCT 42.1 % (34.0-46.0); HGB 13.6 gm/dL (11.4-16.0); Hypochromasia Slight; Lymphocytes % (A) 8 %; MCH 28.5 pg (25.0-35.0); MCHC 32.4 g/dL (31.0-37.0); MCV 88.1 fL (80.0-100.0); Mean Platelet Volume 10.3; Monocytes # (A) 0.3 k/uL (0-1.0); Monocytes % (A) 2 %; Neutrophils # (A) 11.3 k/uL (1.3-7.7); Neutrophils % (A) 89 %; Platelet Count 155 k/uL (150-450); RBC 4.78 m/uL (3.80-5.40); RDW 13.6 % (11.5-15.5); WBC 12.7 k/uL (3.8-10.6)
--- NOTE | 2023-03-26 12:41 | P.PN ---
Subjective Progress Note Date: 03/26/23 Today complaining of congestion in sinuses. Gen: awake, alert HEENT: normocephalic, atraumatic, good hearing acuity, moist mucous membranes Resp: good air exchange, breathing comfortably with no accessory muscle use, diffuse wheezing CVS: good distal perfusion x 4, GI: soft, NTTP, ND : no SPT, no CVAT, peterson catheter not present MSK: no pitting edema, no clubbing Neuro: non-focal, moving all extremities Psych: cooperative, euthymic mood Hospital Course: 62 year old female with COPD on home oxygen 3 L presented for dyspnea, increased in production. Assessment/plan: Acute COPD exacerbation Chronic hypoxic respiratory failure augmentin BID duoneb PRN and scheduled IV steroids methyprednisolone 60 mg q6 hr tapered to prednisone 40mg daily Nicotine patch 21 mg per 24 hours flonase PRN added DM insulin sliding scale, added levemir 20U HS hypertension resume lisinopril full code DVT PPX heparin sc tid Objective - Vital Signs Vital signs: Vital Signs Temp 97.4 F L 03/26/23 07:55 Pulse 78 03/26/23 11:58 Resp 14 03/26/23 07:55 BP 142/85 03/26/23 07:55 Pulse Ox 94 L 03/26/23 08:09 FiO2 Intake & Output 03/25/23 03/26/23 03/26/23 18:59 06:59 18:59 Intake Total 678 118 Balance 678 118 Intake: Intake, IV Titration 0 Amount Sodium Chloride 0.9% 500 0 ml 500 ml @ 999 mls/hr IV .Q31M STA Rx#:[id number] Oral 678 118 Other: # Voids 2 - Labs CBC & Chem 7: 03/26/23 10:34 03/24/23 17:13 Labs: Abnormal Lab Results - Last 24 Hours (Table) 03/25/23 03/25/23 03/25/23 Range/Units 17:13 17:32 20:16 WBC (3.8-10.6) k/uL Neutrophils # (1.3-7.7) k/uL POC Glucose (mg/dL) 285 H 412 H (70-110) mg/dL Hemoglobin A1c 7.3 H (<=6.0) % 03/26/23 03/26/23 Range/Units 07:47 10:34 WBC 12.7 H (3.8-10.6) k/uL Neutrophils # 11.3 H (1.3-7.7) k/uL POC Glucose (mg/dL) 309 H (70-110) mg/dL Hemoglobin A1c (<=6.0) %
[2023-03-26 12:43] LABS: Glucose,Whole Blood 341 mg/dL (70-110)
[2023-03-26 16:05] LABS: Blood Urea Nitrogen 27.5 mg/dL (9.0-27.0); Calcium 9.3 mg/dL (8.7-10.3); Carbon Dioxide 27.2 mmol/L (21.6-31.8); Chloride 96 mmol/L (96-109); Glucose 336 mg/dL (70-110); Magnesium 1.8 mg/dL (1.5-2.4); Potassium 4.4 mmol/L (3.5-5.5); Sodium 137 mmol/L (135-145)
[2023-03-26 17:08] LABS: Glucose,Whole Blood 301 mg/dL (70-110)
[2023-03-26] MEDS ORDERED: BENZOCAINE/MENTHOL LOZENG 1 EACH LOZENGE MUCOUS MEM PRN (17:19)
[2023-03-26] MEDS: traZODone HCL 100 MG TAB PO SCH (20:15)
[2023-03-26] MEDS: ATORVASTATIN 80 MG TAB PO SCH (20:15)
[2023-03-26 20:26] LABS: Glucose,Whole Blood 254 mg/dL (70-110)
[2023-03-26] MEDS ORDERED: INSULIN DETEMIR (LEVEMIR) 100 UNIT/ML SYR SQ SCH (21:00)
[2023-03-27 05:34] LABS: Basophils % (A) 0 %; Eosinophils % (A) 0 %; HCT 40.6 % (34.0-46.0); Lymphocytes # (A) 2.5 k/uL (1.0-4.8); Lymphocytes % (A) 29 %; MCH 27.7 pg (25.0-35.0); MCHC 31.9 g/dL (31.0-37.0); MCV 86.7 fL (80.0-100.0); Monocytes # (A) 0.3 k/uL (0-1.0); Monocytes % (A) 4 %; Neutrophils # (A) 5.6 k/uL (1.3-7.7); Neutrophils % (A) 66 %; Platelet Count 172 k/uL (150-450); RBC 4.69 m/uL (3.80-5.40); RDW 13.7 % (11.5-15.5); WBC 8.6 k/uL (3.8-10.6)
[2023-03-27 05:51] LABS: African American GFR (CKD) 89 (>60 ml/min/1.73 sqM); Anion Gap 8 mmol/L; Blood Urea Nitrogen 26 mg/dL (7-17); Calcium 8.7 mg/dL (8.4-10.2); Carbon Dioxide 30 mmol/L (22-30); Chloride 100 mmol/L (98-107); Glucose 122 mg/dL (74-99); Magnesium 1.8 mg/dL (1.6-2.3); Non-African American GFR(CKD) 77 (>60 ml/min/1.73 sqM); Potassium 4.1 mmol/L (3.5-5.1); Sodium 138 mmol/L (137-145)
[2023-03-27 06:33] LABS: Glucose,Whole Blood 157 mg/dL (70-110)
[2023-03-27] MEDS: PANTOPRAZOLE 40 MG TABLET PO SCH (06:37)
[2023-03-27] MEDS: INSULIN ASPART (NovoLOG) 100 UNIT/ML VIAL SQ SCH ×2 (06:37→13:36)
[2023-03-27] MEDS: SYMBICORT 160-4.5 MCG INHALER INHALATION SCH (07:24)
[2023-03-27] MEDS: IPRATROPIUM-ALBUTEROL 3 ML NEB INHALATION SCH ×3 (07:24→15:46)
[2023-03-27] MEDS: ESCITALOPRAM 10 MG TAB PO SCH (08:32)
[2023-03-27] MEDS: AMOXIC-POT CLAV 875-125MG 1 EACH TAB PO SCH (08:32)
[2023-03-27] MEDS: FERROUS SULFATE 325 MG TAB PO SCH (08:32)
[2023-03-27] MEDS: NICOTINE 21MG/24HR PATCH TRANSDERM SCH (08:33)
[2023-03-27] MEDS: PREGABALIN 100 MG CAP PO SCH ×2 (08:33→16:49)
[2023-03-27] MEDS: lisinopriL 5 MG TAB PO SCH (08:33)
[2023-03-27] MEDS: ASPIRIN 81 MG PO SCH (08:33)
[2023-03-27] MEDS: FENOFIBRATE 160 MG TAB PO SCH (08:33)
[2023-03-27] MEDS: predniSONE 20 MG TAB PO SCH (08:33)
[2023-03-27] MEDS ORDERED: MAGNESIUM OXIDE 400 MG TAB PO SCH (09:00)
[2023-03-27] MEDS ORDERED: CHOLECALCIFEROL 25 MCG (1000 IU) TABLET PO SCH (09:00)
--- NOTE | 2023-03-27 10:50 | P.DS ---
Providers Date of admission: 03/24/23 21:08 Expected date of discharge: 03/27/23 Attending physician: Addie Guevara MD Primary care physician: Myles Reese MD Hospital Course: Acute COPD exacerbation Chronic hypoxic respiratory failure DM Hypertension Hospital Course: 62 year old female with COPD on home oxygen 3 L presented for dyspnea, increased in production. 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 Pt was started on nebulizers, steroids, and abx for COPD exacerbation. She reported improvement by day 2 of hospitalization, but was still wheezing on exam. By day 3 lungs sounded clear to auscultation. She did also c/o some sinus congestion which improved with flonase. We had an extensive discussion over the course of her hopsitalization regarding smoking cessation. Her discharge plan was discussed with her outpatient provider who indicated they would prescribe the 2 remaining days of augmentin and prednisone, and they would renew her nebulizer prescriptions. I spent 48 minutes coordinating this discharge on 03/27 Gen: awake, alert HEENT: normocephalic, atraumatic, good hearing acuity, moist mucous membranes Resp: good air exchange, breathing comfortably with no accessory muscle use, diffuse wheezing CVS: good distal perfusion x 4, GI: soft, NTTP, ND : no SPT, no CVAT, peterson catheter not present MSK: no pitting edema, no clubbing Neuro: non-focal, moving all extremities Psych: cooperative, euthymic mood Patient Condition at Discharge: Good Plan - Discharge Summary Discharge Rx Participant: No New Discharge Prescriptions: New Amoxic-Pot Clav 875-125Mg [Augmentin 875-125] 1 each PO Q12HR #0 tab predniSONE [Deltasone] 40 mg PO DAILY tab Ipratropium-Albuterol Nebulize [Duoneb 0.5 mg-3 mg/3 ml Soln] 3 ml INHALATION RT-QID each Fluticasone Nasal [place] [Flonase Nasal [place]] 2 spray EA NOSTRIL DAILY PRN ml PRN Reason: Allergy Symptoms Continue traZODone HCL 300 mg PO HS HYDROcodone/APAP 10-325MG [[place] 10-325] 1 tab PO QID PRN PRN Reason: Pain Aspirin EC [Ecotrin Low Dose] 81 mg PO DAILY #30 tablet. Albuterol Inhaler [Ventolin Hfa Inhaler] 2 puff INHALATION RT-Q6H PRN PRN Reason: Shortness Of Breath Nicotine 21Mg/24Hr Patch [Habitrol] 1 patch TRANSDERM DAILY PRN PRN Reason: Nicotine Cravings Cholecalciferol [Vitamin D3 (25 Mcg = 1000 Iu)] 50 mcg PO DAILY Albuterol Nebulized [Ventolin Nebulized] 2.5 mg INHALATION RT-Q6H PRN PRN Reason: Shortness Of Breath Fenofibrate 150 mg PO DAILY Dulaglutide [Trulicity] 3 mg SQ FR Insulin Glargine,Hum.rec.anlog [Lantus Solostar Pen] 20 units SQ HS Glimepiride [Amaryl] 8 mg PO AC-BRKFST Ferrous Sulfate [Iron (65 MG Elemental)] 325 mg PO DAILY Empagliflozin [Jardiance] 25 mg PO DAILY Atorvastatin [Lipitor] 80 mg PO HS lisinopriL [Zestril] 5 mg PO DAILY Omeprazole [PriLOSEC] 20 mg PO DAILY Escitalopram [Lexapro] 10 mg PO DAILY Pregabalin [Lyrica] 200 mg PO TID Nystatin 100,000Unit/gm Cream [Mycostatin Cream] 1 applic TOPICAL BID PRN PRN Reason: vaginal itching or redness Fluticasone/Umeclidin/Vilanter [Trelegy Ellipta 100-62.5-25] 1 puff INHALATION RT-DAILY EPINEPHrine (Auto Inject) [Epipen] 0.3 mg IM ONCE PRN PRN Reason: Anaphylaxis Magnesium Oxide [Mag-Ox] 400 mg PO DAILY Discharge Medication List HYDROcodone/APAP 10-325MG [[place] 10-325] 1 tab PO QID PRN 12/02/15 [History] traZODone HCL 300 mg PO HS 12/02/15 [History] Aspirin EC [Ecotrin Low Dose] 81 mg PO DAILY #30 tablet. 04/26/17 [Rx] Albuterol Inhaler [Ventolin Hfa Inhaler] 2 puff INHALATION RT-Q6H PRN 03/24/23 [History] Albuterol Nebulized [Ventolin Nebulized] 2.5 mg INHALATION RT-Q6H PRN 03/24/23 [History] Atorvastatin [Lipitor] 80 mg PO HS 03/24/23 [History] Cholecalciferol [Vitamin D3 (25 Mcg = 1000 Iu)] 50 mcg PO DAILY 03/24/23 [History] Dulaglutide [Trulicity] 3 mg SQ FR 03/24/23 [History] EPINEPHrine (Auto Inject) [Epipen] 0.3 mg IM ONCE PRN 03/24/23 [History] Empagliflozin [Jardiance] 25 mg PO DAILY 03/24/23 [History] Escitalopram [Lexapro] 10 mg PO DAILY 03/24/23 [History] Fenofibrate 150 mg PO DAILY 03/24/23 [History] Ferrous Sulfate [Iron (65 MG Elemental)] 325 mg PO DAILY 03/24/23 [History] Fluticasone/Umeclidin/Vilanter [Trelegy Ellipta 100-62.5-25] 1 puff INHALATION RT-DAILY 03/24/23 [History] Glimepiride [Amaryl] 8 mg PO AC-BRKFST 03/24/23 [History] Insulin Glargine,Hum.rec.anlog [Lantus Solostar Pen] 20 units SQ HS 03/24/23 [History] Magnesium Oxide [Mag-Ox] 400 mg PO DAILY 03/24/23 [History] Nicotine 21Mg/24Hr Patch [Habitrol] 1 patch TRANSDERM DAILY PRN 03/24/23 [Hist ory] Nystatin 100,000Unit/gm Cream [Mycostatin Cream] 1 applic TOPICAL BID PRN 03/24/23 [History] Omeprazole [PriLOSEC] 20 mg PO DAILY 03/24/23 [History] Pregabalin [Lyrica] 200 mg PO TID 03/24/23 [History] lisinopriL [Zestril] 5 mg PO DAILY 03/24/23 [History] Amoxic-Pot Clav 875-125Mg [Augmentin 875-125] 1 each PO Q12HR #0 tab 03/27/23 [Rx] Fluticasone Nasal [place] [Flonase Nasal [place]] 2 spray EA NOSTRIL DAILY PRN ml 03/27/23 [Rx] Ipratropium-Albuterol Nebulize [Duoneb 0.5 mg-3 mg/3 ml Soln] 3 ml INHALATION RT-QID each 03/27/23 [Rx] predniSONE [Deltasone] 40 mg PO DAILY tab 03/27/23 [Rx] Follow up Appointment(s)/Referral(s): Myles Reese MD [Primary Care Provider] - 1-2 days Discharge Disposition: HOME WITH HOME HEALTH SERVICES
[2023-03-27 11:22] LABS: Glucose,Whole Blood 148 mg/dL (70-110)
[2023-03-27 15:24] VITALS: BP 124/75; RESP 16; TEMP 98
[2023-03-27 16:05] VITALS: PULSE 92
== END 2023-03-27 16:22 | disposition home health service (06) | DRG 191 ==
LOC: EC 14:26 → 6NMEDSUR 21:08
PROVIDERS: ADMIT Internal Medicine; ATTEND Internal Medicine
DX: J44.1 Chronic obstructive pulmonary disease with (acute) exacerbation (principal); J96.11 Chronic respiratory failure with hypoxia; G40.909 Epilepsy, unspecified, not intractable, without status epilepticus; E11.9 Type 2 diabetes mellitus without complications; I10 Essential (primary) hypertension; G25.81 Restless legs syndrome; F17.210 Nicotine dependence, cigarettes, uncomplicated; E78.5 Hyperlipidemia, unspecified; M79.7 Fibromyalgia; K21.9 Gastro-esophageal reflux disease without esophagitis; M19.90 Unspecified osteoarthritis, unspecified site; Z79.4 Long term (current) use of insulin; Z99.81 Dependence on supplemental oxygen; Z28.310 Unvaccinated for COVID-19; Z79.899 Other long term (current) drug therapy; Z79.82 Long term (current) use of aspirin; Z79.84 Long term (current) use of oral hypoglycemic drugs; Z79.51 Long term (current) use of inhaled steroids; Z79.85 Long-term (current) use of injectable non-insulin antidiabetic drugs
CPT/HCPCS: 36415; 71046; 80048; 80053; 83036; 83605; 83735; 83880; 84484; 85025; 85610; 85730; 93005; 94640; 94760; 96361; 96374; 96376; 99291

== ENCOUNTER 2023-09-14 19:28 | Outpatient (CLI) | payer OTHER ==
--- NOTE | 2023-09-16 16:52 | P.PCN ---
Date of Procedure: 09/14/23 Operative Findings: Polysomnography report Date of services 09/14/2023 History This is a 62-year-old female patient with severe COPD and very limited exercise capacity. The patient has an FEV1 of 26% of predicted and the patient is on home O2. The patient has a recent hospitalization back in March 2023 and she was treated and she is currently maintained on Trelegy Ellipta in addition to albuterol updrafts. Her comorbid conditions include chronic hypoxic respiratory failure maintained on 3 L of O2 nasal cannula, smoker, hyperlipidemia, depression, type 2 diabetes mellitus, Parkinson's disease and history of cervical cancer. On a separate note, the patient has chronic hypersomnia. She has a very irregular sleep schedule and she was suspected of obstructive sleep apnea. Pertinent physical findings The patient's weight is 227 pounds with a body mass index of 42.9. Height is 5 feet and 1 inches Technical description The patient was studied using a standard complex polysomnography protocol that included recording of the 2 EKG, Central, occipital and frontal EEG, right and left outer canthus EOG, submental EMG, right and left anterior tibialis EMG, respiratory airflow by thermocouple and or pressure/flow transducer, respiratory efforts by abdominal and thoracic PVDF belts, oxygen saturation by cable oximetry. Position by observation synchronized the PSG. 4 children 12 and nontender and select patients, ETCO2 may be added to the recording. Equipment used: [place]. The sleep characteristics The total time in bed was 386.5 minutes. Total sleep time was 3 and 47.5 minutes. The sleep efficiency was 89.9%. Latency to sleep onset was 4 minutes and related to REM sleep was 90.5 minutes. The sleep architecture was catheterized by 1% stage I, 87% stage II, 0% stage III and 11% REM sleep. The total arousal index was 7.6. The wake time after sleep onset was 35 minutes Respiratory analysis This sleep study showed a total of 4 obstructive events of which 0 obstructive apneas 0 were mixed apneas for obstructive hypopneas and the AHI was 0.5. No central apneas were noted Oxygenation analysis the patient had a baseline pulse ox of 83% while awake. Lowest pulse ox during sleep was 77% and the patient spent approximately 2 hours and 8 minutes of sleep time below pulse ox of 89%. He does have chronic baseline hypoxemia along with nocturnal oxygen desaturations. The saturations were occurring throughout the sleep and O2 was added at 2 L to maintain a sat uration above 90%. Sleep continue with the summary A total of 44 arousals were counted with an index of 7.6 with a respiratory arousal index of 0.2 Periodic limb movements None Cardiac summary Average heart rate of 69 with a minimum heart rate of 65 and a maximum heart rate of 74 Assessment Primary snoring, no evidence of any sleep breathing disorder. Chronic hypoxemia attributed to COPD Nocturnal oxygen saturation improved with O2 therapy and the patient needs to be treated with 2 L of oxygen nasal cannula overnight Severe COPD with an FEV1 of 26% of predicted Hypertension Diabetes mellitus type 2 Parkinson's disease Depression Plan No need for CPAP therapy at this point. Continue to lysing oxygen 2 L/min during sleep. Optimize comorbidities. Optimize COPD. Weight loss. Everett darden.
== END 2023-09-15 05:50 | disposition home or self-care (01) ==
LOC: 3 N SLEEP 19:28
PROVIDERS: ATTEND Internal Medicine Critical Care Medicine
DX: G47.33 Obstructive sleep apnea (adult) (pediatric) (principal); G47.10 Hypersomnia, unspecified; R06.83 Snoring; J44.9 Chronic obstructive pulmonary disease, unspecified; I10 Essential (primary) hypertension; G20.A1 Parkinson's disease without dyskinesia, without mention of fluctuations; F32.A Depression, unspecified; E11.9 Type 2 diabetes mellitus without complications; Z79.899 Other long term (current) drug therapy; Z79.4 Long term (current) use of insulin; Z79.82 Long term (current) use of aspirin; F17.200 Nicotine dependence, unspecified, uncomplicated
CPT/HCPCS: 95810